=== PATIENT | male | born 1960 | race Two or more races ===

== ENCOUNTER 2019-03-02 04:39 | Inpatient (IN) | payer BC, MEDICAID ==
[2019-03-02] VITALS (29 sets, daily range): BP systolic 68–107; BP diastolic 42–66
[~2019-03-02] VITALS: Ht 182.9 cm; Wt 66.2 kg
--- NOTE | 2019-03-02 07:00 | NUR ---
PHARMACEUTICAL DEVELOPMENT TECHNICIAN OPENING NOTES RECEIVED PATIENT IN BED, ALERT AND AWAKE X1. RESPONSIVE TO VERBAL AND TACTILE STIMULI AND BLINKS EYES. HOB ELEVATED. NO S/S OF RESPIRATORY DISTRESS. ON MECHANICAL VENTILATION AC 14; TV 500; FI02 40% PEEP 5 WITH SHILEY XLT 6, NOTED WITH THICK AND YELLOW SECRETIONS. SUCTIONED, AURE WELL. SPO2 100%. GT INTACT AND PATENT. NO RESIDUAL NOTED. PLACEMENT CHECKED UPON AUSCULTATION. MULTIPLE PRESSURE INJURY PRESENT WITH EDEMA TO LEFT AND RIGHT HAND, LEFT AND RIGHT FOOT. PICTURES TAKEN. DRESSING TO PRESSURE INJURY SATURATED WITH FOUL SMELLING ODOR OBSERVED. BED IN LOWEST POSITION, LOCKED. CALL LIGHT WITHIN REACH. ORIENTED PATIENT TO ROOM, UNIT AND CALL LIGHT.
--- NOTE | 2019-03-02 07:00 | NUR ---
RT RECEIVED PT TRACH'D (SHILEY 6XLT DISTAL) AND PLACED ON LTV MECHANICAL VENT WITH SETTINGS FROM PREVIOUS FACILITY. METAPHYSICIST DONE. VENT PLUGGED INTO RED OUTLET. SPARE TRACH AND AMBU BAG AT BEDSIDE. ALARMS ON AND WORKING PROPERLY. SUCTIONED AND MONITORED PRN. NO SOB OR SIGNS OF DISTRESS NOTED AT THIS TIME. WILL CONTINUE TO MONITOR THE PATIENT FOR ANY CHANGES. Addendum: 03/02/19 at 1749 by CECILIA VALDEZ RT Amended: Links added.
--- NOTE | 2019-03-02 07:15 | NUR ---
CENTRIFUGAL MACHINE TENDER NOTE: RECEIVED PATIENT FROM [facility]. VENT SETTINGS SHILEY #6, AC 14, TV 500, FIO2 40%, PEEP 5. OSTOMY IN PLACE, GTUBE IN PLACE CLAMPED AT THIS TIME. SUPRAPUBIC CATHETER IN PLACE, EMPTY AT THIS TIME. IV TO BOTH WRIST IN PLACE. PICC LINE TO MIKE IN PLACE, NOT WORKING PER [facility] REPORT. VITAL SIGNS 83/50, HR 97, RESP 16, 97% O2 SAT. WILL ENDORSE TO DAY NURSE TO CONTINUE WITH PLAN OF CARE.
[2019-03-02] MEDS ORDERED: MAGNESIUM HYDROXIDE 30 ML UDC PO PRN (08:30)
[2019-03-02] MEDS ORDERED: IV NS 0.9% 1,000 ML IV PRN (08:30)
[2019-03-02] MEDS ORDERED: HYDROCODONE/APAP 5/325MG 1 EACH TABLET PO PRN ×2 (08:30→14:00)
[2019-03-02] MEDS ORDERED: MAG HYDROX/AL HYDROX/SIMETH 30 ML UDC PO PRN (08:30)
[2019-03-02] MEDS ORDERED: ZOLPIDEM TARTRATE 5 MG TABLET PO PRN (08:30)
[2019-03-02] MEDS ORDERED: ONDANSETRON HCL/PF 4 MG/2 ML VIAL IVP PRN (08:30)
[2019-03-02] MEDS: COLISTIMETHATE SODIUM 100 MG in IV NS 0.9% 50 ML IV SCH ×2 (09:59→21:09)
[2019-03-02] MEDS ORDERED: ACET-868 GT (10:46)
[2019-03-02] MEDS ORDERED: SCOP1PAT11 TD (10:46)
[2019-03-02] MEDS ORDERED: DIPH50CA4 PO (10:46)
[2019-03-02] MEDS ORDERED: POLY17PO4 GT (10:46)
[2019-03-02] MEDS ORDERED: IPRA3AMP23 IH (10:46)
[2019-03-02] MEDS ORDERED: MIDO5TAB4 GT (10:46)
[2019-03-02] MEDS ORDERED: TRAZ-182 PO (10:46)
[2019-03-02] MEDS ORDERED: [UNRECOGNIZED DRUG - CODE] IV (10:46)
[2019-03-02] MEDS ORDERED: CHLO500T3 GT (10:46)
[2019-03-02] MEDS ORDERED: DOCU-141 PO (10:46)
[2019-03-02] MEDS ORDERED: AMIO200T4 GT (10:46)
[2019-03-02] MEDS ORDERED: ONDA4TAB11 GT (10:46)
[2019-03-02] MEDS ORDERED: HYDR-4384 PO (10:46)
[2019-03-02] MEDS ORDERED: CHLO473M3 MM (10:46)
[2019-03-02] MEDS ORDERED: ACET200V4 MC (10:46)
[2019-03-02] MEDS ORDERED: BISA10SU11 RC (10:46)
[2019-03-02] MEDS ORDERED: ENOX40DI SQ (10:46)
[2019-03-02] MEDS ORDERED: NA P133E RC (10:46)
[2019-03-02] MEDS ORDERED: METO-295 GT (10:46)
--- NOTE | 2019-03-02 11:57 | NUR ---
STAFF RESEARCH SCIENTIST NOTES PICC LINE DC'D AURE WELL WITH CATHETER TIP INTACT.
[2019-03-02] MEDS ORDERED: METOCLOPRAMIDE HCL 10 MG TABLET GT PRN (14:00)
[2019-03-02] MEDS ORDERED: ACETAMINOPHEN 325 MG TABLET MC PRN (14:00)
[2019-03-02] MEDS ORDERED: ONDANSETRON 4 MG TAB.RAPDIS GT PRN (14:00)
[2019-03-02] MEDS ORDERED: NA PHOS,M-B/NA PHOS,DI-BA 1 EA ENEMA RC PRN (14:00)
[2019-03-02] MEDS ORDERED: BISACODYL SUPP (10 MG) 10 MG/SUPP.RECT SUPP.RECT RC PRN (14:00)
[2019-03-02] MEDS ORDERED: diphenhydrAMINE HCL 50 MG CAPSULE PO PRN (14:00)
[2019-03-02] MEDS: JEVITY 1.2 CAL 1,000 ML BOTTLE GT PRN (14:22)
[2019-03-02] MEDS: CHLORHEXIDINE GLUCONATE 15 ML UDC MM SCH ×2 (15:31→20:53)
--- NOTE | 2019-03-02 15:57 | NUR ---
CARD BOXER NOTES LEFT MESSAGE TO YASH INFECTION CONTROL D/T PATIENT WITH HX OF CRE
[2019-03-02 16:35] LABS: APPEARANCE,URINE CLEAR (CLEAR); BILIRUBIN,URINE NEGATIVE (NEGATIVE); BLOOD, URINE MODERATE Ery/uL (NEGATIVE); COLOR,URINE YELLOW (YELLOW); KETONES,URINE TRACE (NEGATIVE); LEUKOCYTE ESTERASE ,URINE MODERATE (NEGATIVE); NITRITE, URINE NEGATIVE (NEGATIVE); PROTEIN,URINE 100 mg/dl (NEGATIVE); UGLUCOSE NEGATIVE (NEGATIVE); UROBILINOGEN,URINE 0.2 EU/dL (0.2)
[2019-03-02 16:42] LABS: BACTERIA,URINE None seen /HPF (None Seen); SQUAMOUS EPITHELIAL CELL,UR Few /HPF (None Seen)
[2019-03-02 16:49] LABS: CREATININE, URINE < 13.0 MG/DL (30.0-125.0); URINE SODIUM, RANDOM 98 mmol/l (40-220); URINE TOTAL PROTEIN 238.5 mg/dL (0-11.9)
[2019-03-02] MEDS: AMIODARONE HCL 200 MG TABLET GT SCH (17:00)
[2019-03-02] MEDS ORDERED: ACETYLCYSTEINE 20% SOLN 800 MG/4 ML VIAL NEB SCH (17:00)
[2019-03-02] MEDS: DOCUSATE SODIUM 100 MG CAPSULE PO SCH (17:15)
[2019-03-02] MEDS: ACETAMINOPHEN 325 MG TABLET PO PRN (17:15)
[2019-03-02 17:16] LABS: EOSINOPHIL,URINE None Seen
[2019-03-02 17:18] LABS: BASOPHILS % (AUTO) 0.5 % (0.0-2.0); EOSINOPHILS % (AUTO) 5.7 % (0.0-6.0); LYMPHOCYTES % (AUTO) 11.1 % (20.0-44.0); MEAN CORPUSCULAR HGB CONC 32 g/dl (31.0-36.0); MEAN CORPUSCULAR VOLUME 85 fL (80-96); MONOCYTES # (AUTO) 0.6 /CMM (0.1-1.30); MONOCYTES % (AUTO) 6.5 % (2.0-12.0); NEUTROPHILS % (AUTO) 76.2 % (43.0-81.0); PLATELET COUNT (AUTO) 214 /CMM (150-450); RED BLOOD CELL COUNT(AUTO) 2.38 MIL/uL (4.5-6.0); WHITE BLOOD COUNT (AUTO) 9.1 K/uL (4.3-11.0)
[2019-03-02] MEDS: MIDODRINE HCL (5MG) 5 MG TABLET GT SCH (17:18)
[2019-03-02 17:24] LABS: CALCIUM, SERUM 11.4 mg/dL (8.5-10.1); CREATININE 1.3 mg/dL (0.6-1.3); POTASSIUM 3.6 mmol/L (3.5-5.1)
[2019-03-02 17:26] LABS: HEMATOCRIT 20 % (39-51)
[2019-03-02 17:27] LABS: HEMOGLOBIN 6.4 g/dL (13.5-17.5)
--- NOTE | 2019-03-02 17:30 | NUR ---
INTERNATIONAL BROADCAST MUSIC LIBRARIAN NOTES RECEIVED LAB RESULTS OF NA 167; CHLORIDE 127; HGB 6.4, RELAYED TO DR. DOAN, AWAITING FOR RESPONSE.
[2019-03-02 17:59] LABS: EOSINOPHILS % (MANUAL) 2 % (0-4); LYMPHOCYTES % (MANUAL) 10 % (16-48); MONOCYTES % (MANUAL) 6 % (0-11.0); NEUTROPHILS % (MANUAL) 82 (42-76)
--- NOTE | 2019-03-02 18:00 | NUR ---
PETROPHYSICIST NOTES RECEIVED CALL BACK FROM DR. DOAN, RELAYED NA 167 WITH NS RUNNING AT 100 ML/HR, CHLORIDE OF 127 AND HGB OF 6.4 WITH N.O. CARRIED OUT FOR 2 PRBC[address] ALSO RELAYED TO [address] DOAN REGARDING FLUCTUATING SBP TO 80-90 AND DBP 40-50. PER MD IF IT DROPS TO TRANSFER TO ICU. ALSO INFORMED MD THAT PATIENT IS ON MIDODRINE AND IT WAS GIVEN AROUND 1718 AND WILL RECHECK BP AGAIN.
--- NOTE | 2019-03-02 18:40 | NUR ---
MUTUAL FUND ACCOUNTANT NOTES BP DROPPED TO 78/49 PATIENT FOR TRANSFER TO ICU
--- NOTE | 2019-03-02 18:51 | NUR ---
PANTOGRAPH II ENGRAVER NOTE RECEIVED REPORT FROM SOFIA DUFFY FROM 3W ([phone] TO [phone] )TO TRANSFER PATIENT TO ICU FOR DECREASED BP OF 78/49.
--- NOTE | 2019-03-02 19:05 | NUR ---
GUARD DRIVER NOTE ENDORSED REPORT TO MARCOS DUFFY.AWAITING PATIENT .
--- NOTE | 2019-03-02 19:10 | NUR ---
ROLL UP GUIDER OPERATOR NOTES PATIENT WAS TRANSFERRED TO ICU 254 VIA ACLS PROTOCOL. REPORT GIVEN TO CLIVE العلي
[2019-03-02] MEDS ORDERED: IV 1/2NS 1000 ML 1,000 ML IV ONE (19:30)
[2019-03-02] MEDS: IV 1/2NS 1000 ML 1,000 ML IV PRN (19:50)
[2019-03-02] MEDS ORDERED: IV NS 0.9% 250 ML IV PRN (20:00)
--- NOTE | 2019-03-02 20:00 | NUR ---
DIALS INSPECTOR - NOTES - RECEIVED PATIENT IN BED, ALERT AND AWAKE X1. RESPONSIVE TO VERBAL AND TACTILE STIMULI AND BLINKS EYES. HOB ELEVATED. NO S/S OF RESPIRATORY DISTRESS. ON MECHANICAL VENTILATION AC 14; TV 500; FI02 40% PEEP 5 WITH SHILEY XLT 6, NOTED WITH THICK AND YELLOW SECRETIONS. SUCTIONED, AURE WELL. SPO2 100%. GT INTACT AND PATENT. NO RESIDUAL NOTED. PLACEMENT CHECKED UPON AUSCULTATION. MULTIPLE PRESSURE INJURY PRESENT WITH EDEMA TO LEFT AND RIGHT HAND, LEFT AND RIGHT FOOT. PICTURES TAKEN. DRESSING TO PRESSURE INJURY SATURATED WITH FOUL SMELLING ODOR OBSERVED. BED IN LOWEST POSITION, LOCKED. CALL LIGHT WITHIN REACH. ORIENTED PATIENT TO ROOM, UNIT AND CALL LIGHT.
[2019-03-02] MEDS: ACETYLCYSTEINE 20% SOLN 800 MG/4 ML VIAL NEB SCH (20:05)
[2019-03-02] MEDS: ALBUTEROL HALF STRENGTH 1.25 MG/3 ML VIAL.NEB NEB SCH (20:05)
[2019-03-02] MEDS: TRAZODONE 50 MG TABLET PO SCH (21:33)
[2019-03-03] VITALS (58 sets, daily range): BP systolic 74–126; BP diastolic 33–65
[2019-03-03 04:40] LABS: BASOPHILS % (AUTO) 0.3 % (0.0-2.0); EOSINOPHILS % (AUTO) 6.6 % (0.0-6.0); HEMATOCRIT 27 % (39-51); HEMOGLOBIN 8.6 g/dL (13.5-17.5); LYMPHOCYTES # (AUTO) 1.4 /CMM (0.8-4.8); MEAN CORPUSCULAR HGB CONC 32 g/dl (31.0-36.0); MEAN CORPUSCULAR VOLUME 86 fL (80-96); MONOCYTES # (AUTO) 0.3 /CMM (0.1-1.30); MONOCYTES % (AUTO) 2.9 % (2.0-12.0); NEUTROPHILS # (AUTO) 7.2 /CMM (1.8-8.9); NEUTROPHILS % (AUTO) 75.2 % (43.0-81.0); PLATELET COUNT (AUTO) 241 /CMM (150-450); RED BLOOD CELL COUNT(AUTO) 3.09 MIL/uL (4.5-6.0); WHITE BLOOD COUNT (AUTO) 9.6 K/uL (4.3-11.0)
[2019-03-03 04:54] LABS: ALBUMIN 1.7 g/dL (3.4-5.0); BILIRUBIN,TOTAL 0.3 mg/dL (0.2-1.0); CALCIUM, SERUM 11.6 mg/dL (8.5-10.1); CREATININE 1.4 mg/dL (0.6-1.3); MAGNESIUM 1.6 mg/dL (1.8-2.4); PHOSPHORUS 3.9 mg/dL (2.5-4.9); POTASSIUM 3.8 mmol/L (3.5-5.1); TOTAL PROTEIN, SERUM 7.2 g/dL (6.4-8.2)
--- NOTE | 2019-03-03 07:00 | NUR ---
ICU/RN: Pt received, no distress, tolerating current vent settings. Airway cleared of secretions. Tolerating TF. Suprapubic catheter draining to gravity, IVF infusing as ordered. Aspiration precautions in place. Will cont to monitor pt.
[2019-03-03] MEDS: ACETYLCYSTEINE 20% SOLN 800 MG/4 ML VIAL NEB SCH ×2 (07:44→19:45)
[2019-03-03] MEDS: ALBUTEROL HALF STRENGTH 1.25 MG/3 ML VIAL.NEB NEB SCH ×2 (07:44→19:45)
[2019-03-03] MEDS: IV 1/2NS 1000 ML 1,000 ML IV PRN (07:53)
[2019-03-03] MEDS: COLISTIMETHATE SODIUM 100 MG in IV NS 0.9% 50 ML IV SCH ×2 (08:27→20:30)
[2019-03-03] MEDS: CHLORHEXIDINE GLUCONATE 15 ML UDC MM SCH ×2 (08:28→20:30)
[2019-03-03] MEDS: AMIODARONE HCL 200 MG TABLET GT SCH ×2 (08:28→16:24)
[2019-03-03] MEDS: MIDODRINE HCL (5MG) 5 MG TABLET GT SCH ×2 (08:28→16:24)
[2019-03-03] MEDS: POLYETHYLENE GLYCOL 3350 17 GM POWD.PACK GT SCH (08:29)
[2019-03-03] MEDS: DOCUSATE SODIUM 100 MG CAPSULE PO SCH (08:29)
[2019-03-03] MEDS: Z GUARD REMEDY 2 OZ OINT TP PRN ×2 (08:30→16:11)
[2019-03-03] MEDS ORDERED: CHLORZOXAZONE 500 MG TABLET GT SCH (09:00)
--- NOTE | 2019-03-03 09:26 | NUR ---
RT Pt received trached on mechanical ventilation with noted settings. Pt is awake but does not follow commands. Vent is plugged into red outlet. No SOB or respiratory distress noted. Addendum: 03/03/19 at 0927 by GHANSHYAM GIRARD RT Amended: Links added.
--- NOTE | 2019-03-03 10:30 | NUR ---
ICU/RN: Dr Flannery at bedside; updated on pt status, labs and nephrology recommendations. Per MD, increase free water flushes to 300cc/hr, change IVF to D5W at 150cc/hr. Noted and carried out.
[2019-03-03] MEDS ORDERED: SILVER NITRATE APPLICATOR 1 EA BOX TP ONE (11:00)
[2019-03-03] MEDS ORDERED: LIDOCAINE 1%-EPI 1:100,000 50 ML VIAL IJ ONE (11:00)
[2019-03-03] MEDS: JEVITY 1.2 CAL 1,000 ML BOTTLE GT PRN (11:09)
[2019-03-03] MEDS: IV D5W 1,000 ML IV PRN ×2 (11:13→20:00)
[2019-03-03] MEDS: Magnesium 1GM/D5W 100ML PREMIX 100 ML IV SCH ×2 (12:12→13:21)
--- NOTE | 2019-03-03 13:30 | NUR ---
ICU/RN: SONI Ignacio notified that consent was obtained from pt's sister and DPOA. Per PA, no debridement for today.
[2019-03-03] MEDS ORDERED: CYCLOBENZAPRINE 10 MG TABLET PO PRN (14:30)
[2019-03-03] MEDS: CLOTRIMAZOLE/BETAMETASONE DIPROPIONATE 15 GM TUBE TP SCH ×3 (15:00→16:27)
[2019-03-03 15:22] LABS: HEMOGLOBIN 8.1 g/dL (13.5-17.5)
--- NOTE | 2019-03-03 15:40 | NUR ---
ICU/RN: Pt S/P sacral and bilateral buttock debridement with SONI Ignacio. PA assisted at bedside. Silver nitrate administered to prevent excessive bleeding. Pressure applied. Pt tolerated procedure well. heel cover splitter updated.
[2019-03-03] MEDS: DAKINS QUARTER STRENGTH (0.125%) 480 ML BOTTLE TOP SCH (15:41)
[2019-03-03] MEDS: Z GUARD REMEDY 2 OZ OINT TP SCH (16:11)
[2019-03-03] MEDS: DOCUSATE SODIUM LIQ 100 MG/10 ML UDC GT SCH (16:23)
--- NOTE | 2019-03-03 17:45 | NUR ---
ICU/RN: Received critical lab result from [facility] Dr Bower, regarding positive blood culture 1/2 bottle positive for coag negative staph; 2/[address] Benitez trinidad.
--- NOTE | 2019-03-03 18:00 | NUR ---
ICU/RN: Dr Marquis informed of pt downward BP trend; unable to maintain MAP >65mmHg despite midodrine administration and ongoing infusion of IVF at 150mls/hr. Also notified of critical lab results drawn from [facility] ER prior to pt admission to [facility]: blood culture bottle 1 out of 2 has coag negative staphylococcus; bottle 2 negative for growth. Urine culture still pending and advised RN to follow up with [facility] ([phone]) regarding results tomorrow. Per MD, blood culture results likely due to mixed contaminants. Orders for Levophed and PICC line insertion noted and carried out.
--- NOTE | 2019-03-03 18:15 | NUR ---
ICU/RN: Consent for PICC insertion obtained from Caty, pt's sister and DPOA. Pt previously had PICC line from [facility] but was discontinued per MD order. Nursing supervisor concrete stone finishing and bellows charger assembler notified.
[2019-03-03] MEDS: NOREPINEPHRINE 16 MG in IV D5W 500 ML IV PRN (18:34)
--- NOTE | 2019-03-03 19:59 | NUR ---
RT Pt received trached on mechanical ventilation with noted settings. Pt is stable at this time. Vent is plugged into red outlet. No SOB or respiratory distress noted. will continue to monitor. Addendum: 03/03/19 at 1999 by DEE DEWITT RT Amended: Links added.
--- NOTE | 2019-03-03 20:00 | NUR ---
LEAD PERFORMANCE SUPPORT ANALYST - NOTES - RECEIVED PATIENT IN BED, ALERT AND AWAKE X1. RESPONSIVE TO VERBAL AND TACTILE STIMULI AND BLINKS EYES. HOB ELEVATED. NO S/S OF RESPIRATORY DISTRESS. ON MECHANICAL VENTILATION AC 14; TV 500; FI02 40% PEEP 5 WITH SHILEY XLT 6, NOTED WITH THICK AND YELLOW SECRETIONS. SUCTIONED, TOLERATED WELL. SPO2 100%. GT INTACT AND PATENT ON TF JEVITY 1.2 @ 60 ML/HR. 40 RESIDUAL NOTED. PLACEMENT CHECKED UPON AUSCULTATION. MULTIPLE PRESSURE INJURY PRESENT WITH EDEMA TO LEFT AND RIGHT HAND, LEFT AND RIGHT FOOT. BED IN LOWEST POSITION, LOCKED. CALL LIGHT WITHIN REACH. ORIENTED PATIENT TO ROOM, UNIT AND CALL LIGHT.
[2019-03-03] MEDS: TRAZODONE 50 MG TABLET PO SCH (21:15)
--- NOTE | 2019-03-03 23:30 | NUR ---
LEFT UPPER ARM MIDLINE PLACED, PICC LINE UNABLE TO BE ADVANCED TO SVC SO IT WAS ADVANCED 23 CM FROM INSERTION POINT.
[2019-03-04] VITALS (96 sets, daily range): BP systolic 78–120; BP diastolic 41–69
[2019-03-04] MEDS: IV D5W 1,000 ML IV PRN ×2 (03:54→19:39)
[2019-03-04 04:27] LABS: BASOPHILS % (AUTO) 0.3 % (0.0-2.0); EOSINOPHILS % (AUTO) 11.9 % (0.0-6.0); HEMATOCRIT 22 % (39-51); HEMOGLOBIN 7.2 g/dL (13.5-17.5); LYMPHOCYTES # (AUTO) 1.3 /CMM (0.8-4.8); LYMPHOCYTES % (AUTO) 16.6 % (20.0-44.0); MEAN CORPUSCULAR HGB CONC 32 g/dl (31.0-36.0); MEAN CORPUSCULAR VOLUME 86 fL (80-96); MONOCYTES # (AUTO) 0.2 /CMM (0.1-1.30); MONOCYTES % (AUTO) 3.2 % (2.0-12.0); NEUTROPHILS # (AUTO) 5.3 /CMM (1.8-8.9); PLATELET COUNT (AUTO) 200 /CMM (150-450); WHITE BLOOD COUNT (AUTO) 7.8 K/uL (4.3-11.0)
[2019-03-04 04:29] LABS: CALCIUM, SERUM 11.1 mg/dL (8.5-10.1); CREATININE 1.3 mg/dL (0.6-1.3); MAGNESIUM 1.7 mg/dL (1.8-2.4); POTASSIUM 3.6 mmol/L (3.5-5.1)
[2019-03-04] MEDS: JEVITY 1.2 CAL 1,000 ML BOTTLE GT PRN (04:41)
--- NOTE | 2019-03-04 07:29 | NUR ---
BUSINESS INTELLIGENCE REPORTING ANALYST: pt.is obtunded, can open eyes by touch, no eyes contact, rest, no grimacing, posturing/extension, rigid, SR/SB 52-62, on Levophed gtt 4 mcg/min now, SBP over 90 now, O2sat, over 96%, FiO2 40%, no SOB, GTF residual 30ml now, no hematuria now, H/H 7.2, Na 154, getting D5W@150, all wounds care done over by report, no acute bleeding events by report
[2019-03-04] MEDS: ALBUTEROL HALF STRENGTH 1.25 MG/3 ML VIAL.NEB NEB SCH ×2 (07:35→19:54)
[2019-03-04] MEDS: ACETYLCYSTEINE 20% SOLN 800 MG/4 ML VIAL NEB SCH ×2 (07:35→19:54)
[2019-03-04] MEDS: Z GUARD REMEDY 2 OZ OINT TP SCH (07:42)
[2019-03-04] MEDS: CLOTRIMAZOLE/BETAMETASONE DIPROPIONATE 15 GM TUBE TP SCH ×4 (07:43→16:34)
[2019-03-04] MEDS: DAKINS QUARTER STRENGTH (0.125%) 480 ML BOTTLE TOP SCH ×2 (07:43)
[2019-03-04] MEDS: AMIODARONE HCL 200 MG TABLET GT SCH ×2 (08:15→16:33)
[2019-03-04] MEDS: POLYETHYLENE GLYCOL 3350 17 GM POWD.PACK GT SCH (08:15)
[2019-03-04] MEDS: MIDODRINE HCL (5MG) 5 MG TABLET GT SCH ×2 (08:16→16:33)
[2019-03-04] MEDS: DOCUSATE SODIUM LIQ 100 MG/10 ML UDC GT SCH ×2 (08:16→16:33)
[2019-03-04] MEDS: COLISTIMETHATE SODIUM 100 MG in IV NS 0.9% 50 ML IV SCH ×2 (08:16→21:31)
[2019-03-04] MEDS: CHLORHEXIDINE GLUCONATE 15 ML UDC MM SCH ×2 (08:16→21:31)
[2019-03-04 09:07] LABS: PTH, INTACT <6 pg/mL (15-65)
--- NOTE | 2019-03-04 09:10 | NUR ---
PLUSH BRUSHER: updated/see new orders
[2019-03-04] MEDS: Magnesium 1GM/D5W 100ML PREMIX 100 ML IV SCH ×2 (11:16→12:54)
--- NOTE | 2019-03-04 11:40 | NUR ---
WOUND CARE CONSULT: PT FOLLOWED BY PLASTIC SURGERY TEAM FOR MULTIPLE WOUNDS. DEFER TO SURGICAL TEAM FOR WOUND TREATMENT PLAN. [facility] L[facility] AIRLOSS MATTRESS. WILL SEE PRN.
[2019-03-04 13:07] LABS: *SPE A/G RATIO 0.6 (0.7-1.7); *SPE ALBUMIN 2.3 g/dL (2.9-4.4); *SPE ALPHA-1-GLOBULIN 0.5 g/dL (0.0-0.4); *SPE ALPHA-2-GLOBULIN 0.5 g/dL (0.4-1.0); *SPE BETA GLOBULIN 1.2 g/dL (0.7-1.3); *SPE GLOBULIN, TOTAL 3.7 g/dL (2.2-3.9); *SPE M-SPIKE Not Observed g/dL (Not Observed); *SPEGAMMA GLOBULIN 1.4 g/dL (0.4-1.8)
--- NOTE | 2019-03-04 14:15 | NUR ---
HIGH SCHOOL COMBINATION TEACHER: GTF residual 120ml now, hold GTF for 2hrs
--- NOTE | 2019-03-04 16:20 | NUR ---
ADVERTISING DISPLAY ROTATOR: GT residual 30 ml, resumed GTF
--- NOTE | 2019-03-04 17:22 | NUR ---
GREENHOUSE GROWER: pt is with same neurostatus/obtunded, SR/SB lowest 57, Levophed 8 mcg/min now, SBP over 90, O2sat. WNL, all skin/pm/wounds care done, colostomy is intact
--- NOTE | 2019-03-04 19:30 | NUR ---
IMPORT COORDINATOR RCD PT W/DX HEMATURIA, HYPOTENSION. PT IS OBTUNDED. SB ON MONITOR. LEVOPHED AT 8 MCG/MIN; TITRATE ACCORDINGLY. SHILEY 6 XLT W/VENT SETTINGS AC 14 500 40% +5. GTUBE WITH JEVITY 1.2 @ 60 ML/HR.
--- NOTE | 2019-03-04 20:00 | NUR ---
HOME WEATHERIZING WORKER TUBE FEEDING RESIDUAL 200 ML; HOLD FEEDING x2 HOURS.
--- NOTE | 2019-03-04 20:45 | NUR ---
PT RCVD TRACH'D ON MECHANICAL VENT WITH CHARTED SETTINGS. PT AURE TX WELL. SX DONE. PT TRACH IS PATENT AND SECURE. VENT ALARMS APPEAR TO BE FUNCTIONING PROPERLY. VENT PLUGGED INTO RED OUTLET. AMBU BAG AT BEDSIDE. NO SOB NOTED. Addendum: 03/04/19 at 2046 by MACHO PATEL RT Amended: Links added.
[2019-03-04] MEDS: TRAZODONE 50 MG TABLET PO SCH (21:31)
[2019-03-05] VITALS (89 sets, daily range): BP systolic 84–116; BP diastolic 52–74
[2019-03-05] MEDS: JEVITY 1.2 CAL 1,000 ML BOTTLE GT PRN (02:51)
[2019-03-05 04:54] LABS: BASOPHILS % (AUTO) 0.2 % (0.0-2.0); EOSINOPHILS % (AUTO) 11.3 % (0.0-6.0); HEMATOCRIT 23 % (39-51); HEMOGLOBIN 7.6 g/dL (13.5-17.5); LYMPHOCYTES # (AUTO) 1.4 /CMM (0.8-4.8); LYMPHOCYTES % (AUTO) 13.4 % (20.0-44.0); MEAN CORPUSCULAR HGB CONC 33 g/dl (31.0-36.0); MEAN CORPUSCULAR VOLUME 83 fL (80-96); MONOCYTES # (AUTO) 0.3 /CMM (0.1-1.30); MONOCYTES % (AUTO) 2.6 % (2.0-12.0); NEUTROPHILS # (AUTO) 7.4 /CMM (1.8-8.9); NEUTROPHILS % (AUTO) 72.5 % (43.0-81.0); PLATELET COUNT (AUTO) 237 /CMM (150-450); RED BLOOD CELL COUNT(AUTO) 2.75 MIL/uL (4.5-6.0); WHITE BLOOD COUNT (AUTO) 10.2 K/uL (4.3-11.0)
[2019-03-05 05:18] LABS: CALCIUM, SERUM 11.2 mg/dL (8.5-10.1); CREATININE 1.2 mg/dL (0.6-1.3); MAGNESIUM 1.9 mg/dL (1.8-2.4); POTASSIUM 3.8 mmol/L (3.5-5.1)
[2019-03-05] MEDS: NOREPINEPHRINE 16 MG in IV D5W 500 ML IV PRN ×2 (05:25→17:26)
--- NOTE | 2019-03-05 07:01 | NUR ---
MILLINERY DEPARTMENT MANAGER PT REMAINED ON LEVOPHED; INCREASED TO 12 MCG/MIN PER PROTOCOL.
--- NOTE | 2019-03-05 07:45 | NUR ---
WEATHERIZATION TECHNICIAN: pt is obtunded, can open eyes by touch, no eyes contact, unable to follow commands, posturing/rigid/contracted, rest, no SOB, suctioned well, SR 65-74, on Levophed gtt, 12 mcg/m now, continue titrate, SBP over 90 now, GTF residual 160 ml now, stopped GTF for 2 hrs, keep HOB over 40, colostomy bag is intact, no hematuria, H/H 7.6/23, getting GT free water, IVF D5W@40ml/h, Na 148, wounds care done by report
[2019-03-05] MEDS: ALBUTEROL HALF STRENGTH 1.25 MG/3 ML VIAL.NEB NEB SCH ×2 (08:02→20:05)
[2019-03-05] MEDS: ACETYLCYSTEINE 20% SOLN 800 MG/4 ML VIAL NEB SCH ×2 (08:02→20:05)
[2019-03-05] MEDS: DAKINS QUARTER STRENGTH (0.125%) 480 ML BOTTLE TOP SCH ×2 (08:52)
[2019-03-05] MEDS: CLOTRIMAZOLE/BETAMETASONE DIPROPIONATE 15 GM TUBE TP SCH ×4 (08:52→17:30)
[2019-03-05] MEDS: Z GUARD REMEDY 2 OZ OINT TP PRN (08:53)
[2019-03-05] MEDS: CHLORHEXIDINE GLUCONATE 15 ML UDC MM SCH ×2 (08:53→21:00)
[2019-03-05] MEDS: DOCUSATE SODIUM LIQ 100 MG/10 ML UDC GT SCH ×2 (08:53→17:26)
[2019-03-05] MEDS: COLISTIMETHATE SODIUM 100 MG in IV NS 0.9% 50 ML IV SCH ×2 (08:54→21:00)
[2019-03-05] MEDS: MIDODRINE HCL (5MG) 5 MG TABLET GT SCH ×2 (08:54→17:26)
[2019-03-05] MEDS: POLYETHYLENE GLYCOL 3350 17 GM POWD.PACK GT SCH (08:54)
[2019-03-05] MEDS: Z GUARD REMEDY 2 OZ OINT TP SCH (09:04)
--- NOTE | 2019-03-05 09:15 | NUR ---
LIGHT BULB REPLACER: is in room, updated with pt.current condition, VS, pressor, all above, asked to verify final result of wound culture, [facility] noted there is min mix morgan growing with rare WBC colonization/GNR, heavy growth diphtheroids/by contamination, need to ask SONI Rainey for workup required to repeat w/c?, debridement done on 03/03
[2019-03-05] MEDS: AMIODARONE HCL 200 MG TABLET GT SCH ×2 (09:45→17:29)
--- NOTE | 2019-03-05 10:00 | NUR ---
RECOIL SPRING WINDER: is in room, updated with pt.current status, VS, Levophed gtt, suction amount, GTF, high residual episodes, IVF, I/O, wounds, H/H, said: continue free H2O 300ml q6h via GT for one day more
--- NOTE | 2019-03-05 11:00 | NUR ---
ASSET PROTECTION ASSOCIATE: GT residual is 40 ml, resumed GTF
--- NOTE | 2019-03-05 13:55 | NUR ---
SAND CONDITIONER: [facility] micro w/c result was sent to SONI Watts f/u note/request
--- NOTE | 2019-03-05 15:23 | NUR ---
UKRAINIAN FOLK ARTS INSTRUCTOR: new wound culture was taken from necrotic tissue pocket of sacral area before wound care, charge nurse is agree to repeat w/c per Dr.Andonian almonte
--- NOTE | 2019-03-05 16:00 | NUR ---
SPACE OPERATIONS OFFICER: evaluated [place] transfer doc re Atbxs follow pharmacy call, pt got Rocephin one dose, Colistimethate started in [facility], unable to get micro result from Rafia Fonseca confirmed by charge nurse call we have to follow with Diann Andrade microbiol results. All wounds/PM/skin care done, Continue titrate Levophed gtt. SNF called/updated.
--- NOTE | 2019-03-05 18:54 | NUR ---
ARTIST'S REPRESENTATIVE: all PM/skin/wounds care done, SR, Levophed 6 mcg/m now, O2sat. over 96%, suctioned well, will notify next nurse to stop GT H2O flushing after 06.00
[2019-03-05] MEDS: TRAZODONE 50 MG TABLET PO SCH (21:00)
[2019-03-06] VITALS (88 sets, daily range): BP systolic 81–113; BP diastolic 50–70
[2019-03-06] MEDS: JEVITY 1.2 CAL 1,000 ML BOTTLE GT PRN (01:31)
[2019-03-06] MEDS: IV D5W 1,000 ML IV PRN (01:32)
--- NOTE | 2019-03-06 03:00 | NUR ---
AGRICULTURAL EQUIPMENT TEST ENGINEER RENDERED WOUND CARE; PT TOLERATED WELL.
--- NOTE | 2019-03-06 06:00 | NUR ---
MULTINEEDLE SHIRRER COMPLETED WATER FLUSHES. CONTINUE TO MONITOR.
--- NOTE | 2019-03-06 06:30 | NUR ---
TRIAL LAWYER PT REMAINED ON LEVOPHED AT 6 MCG/MIN; CONTINUE TO MONITOR.
[2019-03-06] MEDS: ALBUTEROL HALF STRENGTH 1.25 MG/3 ML VIAL.NEB NEB SCH ×2 (07:30→20:00)
[2019-03-06] MEDS: ACETYLCYSTEINE 20% SOLN 800 MG/4 ML VIAL NEB SCH ×2 (07:30→20:00)
[2019-03-06 08:30] LABS: BASOPHILS % (AUTO) 0.3 % (0.0-2.0); HEMATOCRIT 22 % (39-51); HEMOGLOBIN 7.2 g/dL (13.5-17.5); LYMPHOCYTES # (AUTO) 1.6 /CMM (0.8-4.8); LYMPHOCYTES % (AUTO) 16.2 % (20.0-44.0); MEAN CORPUSCULAR HGB CONC 33 g/dl (31.0-36.0); MEAN CORPUSCULAR VOLUME 83 fL (80-96); MONOCYTES # (AUTO) 0.3 /CMM (0.1-1.30); MONOCYTES % (AUTO) 3.5 % (2.0-12.0); NEUTROPHILS # (AUTO) 6.6 /CMM (1.8-8.9); PLATELET COUNT (AUTO) 239 /CMM (150-450); RED BLOOD CELL COUNT(AUTO) 2.65 MIL/uL (4.5-6.0); WHITE BLOOD COUNT (AUTO) 9.8 K/uL (4.3-11.0)
[2019-03-06 08:39] LABS: CALCIUM, SERUM 10.3 mg/dL (8.5-10.1); CREATININE 1.1 mg/dL (0.6-1.3)
[2019-03-06] MEDS: AMIODARONE HCL 200 MG TABLET GT SCH ×2 (09:54→17:19)
[2019-03-06] MEDS: CHLORHEXIDINE GLUCONATE 15 ML UDC MM SCH ×2 (09:54→21:59)
[2019-03-06] MEDS: MIDODRINE HCL (5MG) 5 MG TABLET GT SCH ×2 (09:54→17:20)
[2019-03-06] MEDS: DOCUSATE SODIUM LIQ 100 MG/10 ML UDC GT SCH ×2 (09:54→17:19)
[2019-03-06] MEDS: POLYETHYLENE GLYCOL 3350 17 GM POWD.PACK GT SCH (09:54)
[2019-03-06] MEDS: Z GUARD REMEDY 2 OZ OINT TP SCH (09:55)
[2019-03-06] MEDS: CLOTRIMAZOLE/BETAMETASONE DIPROPIONATE 15 GM TUBE TP SCH ×4 (09:55→17:21)
[2019-03-06] MEDS: DAKINS QUARTER STRENGTH (0.125%) 480 ML BOTTLE TOP SCH ×2 (09:55)
--- NOTE | 2019-03-06 11:15 | NUR ---
THIRD RIGGER NOTE RECEIVED REPORT FROM LAB, PER RIKKI SENSITIVITIES ARE NOT DONE ON YEAST
[2019-03-06] MEDS: NOREPINEPHRINE 16 MG in IV D5W 500 ML IV PRN (17:21)
--- NOTE | 2019-03-06 19:43 | NUR ---
AS400 CONSULTANT CLOSING NOTE NO SIGNIFICANT CHANGES. ALL DUE MEDS GIVEN . NO RESPIRATORY DISTRESS NOTED. UPDATES GIVEN TO SISTER. FAIRLY TOLERATING GTF. WOUND TX DONE. ON LEVO AT 2MCG/MIN. HOB ELEVATED. SIDE RAILS UP AND LOCKED. BED KEPT AT LOWEST POSITION. CONTINUITY OF CARE ENDORSED TO PM NURSE.
--- NOTE | 2019-03-06 20:00 | NUR ---
PRECISION GRINDER EXTERNAL - NOTES - RECEIVED PATIENT IN BED, ALERT AND AWAKE X1. RESPONSIVE TO VERBAL AND TACTILE STIMULI AND BLINKS EYES. HOB ELEVATED. NO S/S OF RESPIRATORY DISTRESS. ON MECHANICAL VENTILATION AC 14; TV 500; FI02 40% PEEP 5 WITH SHILEY XLT 6, NOTED WITH THICK AND YELLOW SECRETIONS. SUCTIONED, TOLERATED WELL. SPO2 100%. GT INTACT AND PATENT ON TF JEVITY 1.2 @ 60 ML/HR. PLACEMENT CHECKED UPON AUSCULTATION. MULTIPLE PRESSURE INJURY PRESENT WITH EDEMA TO LEFT AND RIGHT HAND, LEFT AND RIGHT FOOT. BED IN LOWEST POSITION, LOCKED. CALL LIGHT WITHIN REACH. ORIENTED PATIENT TO ROOM, UNIT AND CALL LIGHT.
[2019-03-06] MEDS: TRAZODONE 50 MG TABLET PO SCH (21:59)
[2019-03-07] VITALS (97 sets, daily range): BP systolic 67–115; BP diastolic 33–79
[2019-03-07 04:22] LABS: BASOPHILS % (AUTO) 0.2 % (0.0-2.0); EOSINOPHILS % (AUTO) 8.4 % (0.0-6.0); HEMATOCRIT 23 % (39-51); HEMOGLOBIN 7.7 g/dL (13.5-17.5); LYMPHOCYTES # (AUTO) 1.5 /CMM (0.8-4.8); LYMPHOCYTES % (AUTO) 10.8 % (20.0-44.0); MEAN CORPUSCULAR HGB CONC 33 g/dl (31.0-36.0); MEAN CORPUSCULAR VOLUME 83 fL (80-96); MONOCYTES # (AUTO) 0.4 /CMM (0.1-1.30); MONOCYTES % (AUTO) 2.7 % (2.0-12.0); NEUTROPHILS # (AUTO) 10.7 /CMM (1.8-8.9); NEUTROPHILS % (AUTO) 77.9 % (43.0-81.0); PLATELET COUNT (AUTO) 326 /CMM (150-450); RED BLOOD CELL COUNT(AUTO) 2.83 MIL/uL (4.5-6.0); WHITE BLOOD COUNT (AUTO) 13.8 K/uL (4.3-11.0)
[2019-03-07] MEDS: IV D5W 1,000 ML IV PRN (04:23)
[2019-03-07 04:30] LABS: CALCIUM, SERUM 10.8 mg/dL (8.5-10.1); CREATININE 1.2 mg/dL (0.6-1.3); POTASSIUM 4.6 mmol/L (3.5-5.1)
[2019-03-07] MEDS: ALBUTEROL HALF STRENGTH 1.25 MG/3 ML VIAL.NEB NEB SCH ×2 (07:00→19:46)
[2019-03-07] MEDS: ACETYLCYSTEINE 20% SOLN 800 MG/4 ML VIAL NEB SCH ×2 (07:00→19:46)
[2019-03-07] MEDS: JEVITY 1.2 CAL 1,000 ML BOTTLE GT PRN (07:12)
--- NOTE | 2019-03-07 07:30 | NUR ---
REPORT CLERK INITIAL NOTE RECEIVED PATIENT OBTUNDED, NON-VERBAL. NO S/S OF PAIN OR DISCOMFORT. NO RESPIRATORY DISTRESS NOTED. TRACH C/D/I. TOLERATING CURRENT VENT SETTINGS. ON TELE MONITOR SR. F/C PATENT, DRAINING BY GRAVITY. COLOSTOMY IN PLACE. GT PATENT AND INTACT, WITH RESIDUALS >100ML. ABY PICC LINE PATENT AND INTACT WITH LEVO AT 10MCG/MIN. HOB ELEVATED. SIDE RAILS UP AND LOCKED. BED KEPT AT LOWEST POSITION. WILL CONTINUE TO MONITOR.
[2019-03-07] MEDS: CHLORHEXIDINE GLUCONATE 15 ML UDC MM SCH ×2 (09:25→21:38)
[2019-03-07] MEDS: DOCUSATE SODIUM LIQ 100 MG/10 ML UDC GT SCH ×2 (09:25→16:27)
[2019-03-07] MEDS: AMIODARONE HCL 200 MG TABLET GT SCH ×2 (09:26→16:28)
[2019-03-07] MEDS: POLYETHYLENE GLYCOL 3350 17 GM POWD.PACK GT SCH (09:26)
[2019-03-07] MEDS: DAKINS QUARTER STRENGTH (0.125%) 480 ML BOTTLE TOP SCH ×2 (09:26)
[2019-03-07] MEDS: MIDODRINE HCL (5MG) 5 MG TABLET GT SCH ×2 (09:26→16:28)
[2019-03-07] MEDS: CLOTRIMAZOLE/BETAMETASONE DIPROPIONATE 15 GM TUBE TP SCH ×4 (09:27→16:29)
[2019-03-07] MEDS: Z GUARD REMEDY 2 OZ OINT TP SCH (09:27)
--- NOTE | 2019-03-07 11:15 | NUR ---
curriculum director note noted patient desaturation in 80's, suctioned tracheal and orally with minimal improvement. RT called to bedside. patient with spo2 96% with fio2 50%. will continue to monitor.
[2019-03-07] MEDS: HYDROCORTISONE SOD SUCCINATE 100 MG/2 ML VIAL IV SCH ×2 (16:27→17:00)
--- NOTE | 2019-03-07 17:00 | NUR ---
icu nurse note spoke with Dr. Marquis regarding patients high residuals throughout the day and gtf has been on hold. new orders received for reglan iv 5mg q6. will continue to monitor.
[2019-03-07] MEDS: METOCLOPRAMIDE HCL 10 MG/2 ML VIAL IV SCH (18:20)
--- NOTE | 2019-03-07 20:00 | NUR ---
SALES REPRESENTATIVE CASH REGISTERS - NOTES - RECEIVED PATIENT OBTUNDED, NON-VERBAL. NO S/S OF PAIN OR DISCOMFORT. NO RESPIRATORY DISTRESS NOTED. TRACH C/D/I. TOLERATING CURRENT VENT SETTINGS. ON TELE MONITOR SR. F/C PATENT, DRAINING BY GRAVITY. COLOSTOMY IN PLACE. GT PATENT AND INTACT, WITH RESIDUALS 160ML. ABY PICC LINE PATENT AND INTACT WITH LEVO AT 12 MCG/MIN. HOB ELEVATED. SIDE RAILS UP AND LOCKED. BED KEPT AT LOWEST POSITION. WILL CONTINUE TO MONITOR.
--- NOTE | 2019-03-07 20:41 | NUR ---
RECEIVED PT TRACH MAXIM 6XLT ON VENT. NO RESP DISTRESS. PT TOLERATING VENT SETTINGS. SX'D FOR MOD AMT OF THIN WHITE SECRETIONS. VENT ALARMS SET AND AUDIBLE. AMBU BAG AT BEDSIDE. CONTINUE [facility] VENT SUPPORT. Addendum: 03/07/19 at 2041 by POOL ENRIQUEZ RT Amended: Links added.
[2019-03-07] MEDS: TRAZODONE 50 MG TABLET PO SCH (21:38)
[2019-03-08] VITALS (96 sets, daily range): BP systolic 78–127; BP diastolic 38–74
[2019-03-08] MEDS: METOCLOPRAMIDE HCL 10 MG/2 ML VIAL IV SCH ×4 (00:01→17:37)
[2019-03-08] MEDS: NOREPINEPHRINE 16 MG in IV D5W 500 ML IV PRN ×2 (02:12→15:36)
[2019-03-08 04:44] LABS: BASOPHILS % (AUTO) 0.3 % (0.0-2.0); HEMATOCRIT 23 % (39-51); HEMOGLOBIN 7.6 g/dL (13.5-17.5); LYMPHOCYTES # (AUTO) 1.3 /CMM (0.8-4.8); LYMPHOCYTES % (AUTO) 6.5 % (20.0-44.0); MEAN CORPUSCULAR HGB CONC 33 g/dl (31.0-36.0); MEAN CORPUSCULAR VOLUME 83 fL (80-96); MONOCYTES # (AUTO) 0.4 /CMM (0.1-1.30); MONOCYTES % (AUTO) 1.8 % (2.0-12.0); NEUTROPHILS # (AUTO) 17.7 /CMM (1.8-8.9); NEUTROPHILS % (AUTO) 91.4 % (43.0-81.0); PLATELET COUNT (AUTO) 460 /CMM (150-450); WHITE BLOOD COUNT (AUTO) 19.3 K/uL (4.3-11.0)
[2019-03-08 04:57] LABS: POTASSIUM 3.8 mmol/L (3.5-5.1)
[2019-03-08 04:58] LABS: ALBUMIN 1.6 g/dL (3.4-5.0); BILIRUBIN,TOTAL 0.3 mg/dL (0.2-1.0); CALCIUM, SERUM 10.8 mg/dL (8.5-10.1); CREATININE 1.3 mg/dL (0.6-1.3); MAGNESIUM 1.6 mg/dL (1.8-2.4); PHOSPHORUS 4.8 mg/dL (2.5-4.9); TOTAL PROTEIN, SERUM 7.6 g/dL (6.4-8.2)
[2019-03-08] MEDS: IV D5W 1,000 ML IV PRN (06:12)
--- NOTE | 2019-03-08 07:25 | NUR ---
ROPE MACHINE SETTER OPENING NOTE RECEIVED REPORT FROM PM NURSE.PATIENT NON-VERBAL. NO S/S OF PAIN OR DISCOMFORT. NO RESPIRATORY DISTRESS NOTED. TRACH TO VENT TOLERATING CURRENT VENT SETTINGS ORDERED. ON TELE MONITOR SR. SUPRAPUBIC CATH PATENT, DRAINING BY GRAVITY. COLOSTOMY IN PLACE. GT PATENT AND INTACT. ABY PICC LINE PATENT AND INTACT WITH LEVO AT 10 MCG/MIN. SAFETY AND ASPIRATION PRECAUTIONS IN PLACE.BED IS LOW AND IN LOCKED POSITION.CALL LIGHT IN REACH.BED ALARM ON .SRX3.WILL CONTINUE TO MONITOR.
[2019-03-08] MEDS: ALBUTEROL HALF STRENGTH 1.25 MG/3 ML VIAL.NEB NEB SCH ×2 (07:30→20:15)
[2019-03-08] MEDS: ACETYLCYSTEINE 20% SOLN 800 MG/4 ML VIAL NEB SCH ×2 (07:30→20:15)
--- NOTE | 2019-03-08 07:30 | NUR ---
RT Pt received trached on mechanical ventilation with noted settings. Vent is plugged into red outlet. No SOB or respiratory distress noted at this time. Addendum: 03/08/19 at 0840 by GHANSHYAM GIRARD RT Amended: Links added.
[2019-03-08] MEDS: MIDODRINE HCL (5MG) 5 MG TABLET GT SCH ×2 (08:44→17:37)
[2019-03-08] MEDS: HYDROCORTISONE SOD SUCCINATE 100 MG/2 ML VIAL IV SCH ×3 (08:44→17:37)
[2019-03-08] MEDS: CHLORHEXIDINE GLUCONATE 15 ML UDC MM SCH ×2 (08:44→21:02)
[2019-03-08] MEDS: AMIODARONE HCL 200 MG TABLET GT SCH ×2 (08:44→17:00)
[2019-03-08] MEDS: DOCUSATE SODIUM LIQ 100 MG/10 ML UDC GT SCH ×2 (08:44→17:37)
[2019-03-08] MEDS: FLUCONAZOLE (100 MG) 100 MG TABLET PO SCH (08:44)
[2019-03-08] MEDS: POLYETHYLENE GLYCOL 3350 17 GM POWD.PACK GT SCH (08:44)
[2019-03-08] MEDS: DAKINS QUARTER STRENGTH (0.125%) 480 ML BOTTLE TOP SCH ×2 (08:45→08:47)
[2019-03-08] MEDS: ACETAMINOPHEN 325 MG TABLET PO PRN (08:45)
[2019-03-08] MEDS: CLOTRIMAZOLE/BETAMETASONE DIPROPIONATE 15 GM TUBE TP SCH ×4 (08:46→17:33)
[2019-03-08] MEDS: Z GUARD REMEDY 2 OZ OINT TP SCH (08:46)
[2019-03-08] MEDS: Magnesium 1GM/D5W 100ML PREMIX 100 ML IV SCH ×2 (09:52→11:00)
[2019-03-08] MEDS ORDERED: LIDOCAINE 1%-EPI 1:100,000 20 ML VIAL TP STA (13:44)
--- NOTE | 2019-03-08 14:53 | NUR ---
EDUCATION DIRECTOR NOTE SEEN BY BULMARO GRANADO FROM WOUND CARE.S/P WOUND DEBRIDEMENT OF BUTTOCK AND SACRAL WOUND.MINIMUM BLEEDING NOTED.PRESSURE DRESSING APPLIED.GOT NEW ORDERS.WILL CONTINUE TO MONITOR.
--- NOTE | 2019-03-08 16:00 | NUR ---
BOOKMOBILE DRIVER NOTE GOT CALL FROM SISTER MARY ELLEN.SHE WANT DOCTOR TO CALL HIS PRIMARY DOCTOR AND UPDATE HER ABOUT CURRENT STATUS OF THE PATIENT.SOCIAL DIRECTOR CODY CALLE MADE AWARE .LEFT MESSAGE WITH INFORMATION.HE SPOKE TO THE PRIMARY PHYSICIAN OF THE PATIENT.
--- NOTE | 2019-03-08 16:24 | NUR ---
CLIENT MANAGER LARGE LAW NOTE [facility].PATIENT POSITIVE FOR VRE WOUND.WILL F/U WITH INFECTIOUS DISEASE.
[2019-03-08] MEDS: JEVITY 1.2 CAL 1,000 ML BOTTLE GT PRN (17:39)
--- NOTE | 2019-03-08 19:00 | NUR ---
BRIAR SHOP SUPERVISOR CLOSING NOTE PATIENT NON-VERBAL. ABLE TO MOUTH WORDS FOR SIMPLE QUESTIONS AND NOD HEAD FOR YES/NO QUESTIONS. NO S/S OF PAIN OR DISCOMFORT. NO RESPIRATORY DISTRESS NOTED. TRACH TO VENT TOLERATING CURRENT VENT SETTINGS ORDERED. ON TELE MONITOR SR. SUPRAPUBIC CATH PATENT, DRAINING BY GRAVITY. COLOSTOMY IN PLACE. GT PATENT AND INTACT. ABY PICC LINE PATENT AND INTACT WITH LEVO AT 8 MCG/MIN. SAFETY AND ASPIRATION PRECAUTIONS IN PLACE.BED IS LOW AND IN LOCKED POSITION.CALL LIGHT IN REACH.BED ALARM ON .SRX3.AWAITING FOR ID CONSULT.ENDORSED TO PM NURSE FOR CHICA.
--- NOTE | 2019-03-08 19:30 | NUR ---
HADOOP DEVELOPER RCD PT W/DX HYPOTENSION; PT IS AWAKE NON VERBAL. NSR ON MONITOR. LEVOPHED AT 8 MCG/MIN TO KEEP MAP >65' WILL TITRATE ACCORDINGLY. COLOSTOMY IN PLACE WITH SMALL AMOUNT OF LIQUID STOOL NOTED. SKIN CARE DONE. SUPRAPUBIC CATH WITH CLOUDY URINE OUTPUT NOTED. MULTIPLE WOUND ISSUES WITH DRESSINGS C/D/I. ABY PICC LINE WITH D5W @ 40 ML/HR. JEVITY 1.2 @ 60 ML/HR W/MIN RESIDUAL NOTED.
--- NOTE | 2019-03-08 20:00 | NUR ---
EMPLOYEE WELLNESS/FITNESS COORDINATOR RENDERED ORAL CARE; TURNED AND REPOSITIONED. CONTINUE TO MONITOR.
[2019-03-08] MEDS: MEROPENEM 500 MG in IV NS 0.9% 50 ML IV SCH (21:02)
[2019-03-08] MEDS: LINEZOLID RTU BAG 600 MG in PREMIX 1 EA IV SCH (21:02)
[2019-03-08] MEDS: TRAZODONE 50 MG TABLET PO SCH (22:53)
[2019-03-09] VITALS (81 sets, daily range): BP systolic 77–115; BP diastolic 43–79
[2019-03-09] MEDS: METOCLOPRAMIDE HCL 10 MG/2 ML VIAL IV SCH ×4 (00:30→18:20)
[2019-03-09 04:32] LABS: BASOPHILS # (AUTO) 0.1 /CMM (0.0-0.2); BASOPHILS % (AUTO) 0.5 % (0.0-2.0); EOSINOPHILS % (AUTO) 0.1 % (0.0-6.0); HEMATOCRIT 21 % (39-51); LYMPHOCYTES # (AUTO) 1.5 /CMM (0.8-4.8); LYMPHOCYTES % (AUTO) 10.7 % (20.0-44.0); MEAN CORPUSCULAR HGB CONC 33 g/dl (31.0-36.0); MEAN CORPUSCULAR VOLUME 84 fL (80-96); MONOCYTES # (AUTO) 0.5 /CMM (0.1-1.30); MONOCYTES % (AUTO) 3.6 % (2.0-12.0); NEUTROPHILS # (AUTO) 11.7 /CMM (1.8-8.9); NEUTROPHILS % (AUTO) 85.1 % (43.0-81.0); PLATELET COUNT (AUTO) 463 /CMM (150-450); RED BLOOD CELL COUNT(AUTO) 2.56 MIL/uL (4.5-6.0); WHITE BLOOD COUNT (AUTO) 13.7 K/uL (4.3-11.0)
[2019-03-09 04:59] LABS: CALCIUM, SERUM 9.8 mg/dL (8.5-10.1); CREATININE 1.2 mg/dL (0.6-1.3); PHOSPHORUS 4.2 mg/dL (2.5-4.9)
[2019-03-09] MEDS: MEROPENEM 500 MG in IV NS 0.9% 50 ML IV SCH ×3 (05:01→20:19)
--- NOTE | 2019-03-09 07:37 | NUR ---
RN NOTE: Received patient in bed, awake, nonverbal but able to mouth words and answer simple questions by nodding and shaking his head. On vent-trach dependent and was saturating 95-100% with current vent setting. Denied any pain or discomfort. HOB elevated. On GT feeding of Jevity 1.2 @60ml/hr and was tolerating well. Afebrile. Skin warm to touch. On Levophed 4mcg/min and will continue to monitor the patient's blood pressure. (L) UA PICC line with 3 ports infusing Levophed. Suprapubic catheter in placed with yellow urine draining to gravity and colostomy bag on the (L) lower quadrant with liquid brown stool. On contact isolation for VRE sacral wound. Will inform the hospitalist about the patient's potassium level today. Bed alarmed and locked at all times. Needs anticipated. Frequent suctioning was rendered to the patient.
[2019-03-09] MEDS: ALBUTEROL HALF STRENGTH 1.25 MG/3 ML VIAL.NEB NEB SCH ×2 (08:15→20:10)
[2019-03-09] MEDS: ACETYLCYSTEINE 20% SOLN 800 MG/4 ML VIAL NEB SCH ×2 (08:15→20:10)
[2019-03-09] MEDS: POTASSIUM CL. PREMIX PERIPHER. 50 ML IV SCH ×4 (08:46→12:55)
[2019-03-09] MEDS: HYDROCORTISONE SOD SUCCINATE 100 MG/2 ML VIAL IV SCH ×3 (10:45→18:20)
[2019-03-09] MEDS: FLUCONAZOLE (100 MG) 100 MG TABLET PO SCH (10:47)
[2019-03-09] MEDS: MIDODRINE HCL (5MG) 5 MG TABLET GT SCH ×2 (10:48→18:33)
[2019-03-09] MEDS: AMIODARONE HCL 200 MG TABLET GT SCH ×2 (10:49→18:21)
[2019-03-09] MEDS: DAKINS QUARTER STRENGTH (0.125%) 480 ML BOTTLE TOP SCH ×2 (10:50→10:51)
[2019-03-09] MEDS: CHLORHEXIDINE GLUCONATE 15 ML UDC MM SCH ×2 (10:50→20:20)
[2019-03-09] MEDS: CLOTRIMAZOLE/BETAMETASONE DIPROPIONATE 15 GM TUBE TP SCH ×4 (10:52→18:33)
[2019-03-09] MEDS: Z GUARD REMEDY 2 OZ OINT TP SCH (10:53)
[2019-03-09] MEDS: POLYETHYLENE GLYCOL 3350 17 GM POWD.PACK GT SCH (10:54)
[2019-03-09] MEDS: LINEZOLID RTU BAG 600 MG in PREMIX 1 EA IV SCH ×2 (10:54→21:00)
[2019-03-09] MEDS: DOCUSATE SODIUM LIQ 100 MG/10 ML UDC GT SCH ×2 (10:54→18:20)
--- NOTE | 2019-03-09 14:30 | NUR ---
RN NOTE: Patient was off Levophed at this time. Will continue to monitor the patient's BP.
[2019-03-09] MEDS: JEVITY 1.2 CAL 1,000 ML BOTTLE GT PRN (17:10)
--- NOTE | 2019-03-09 19:30 | NUR ---
RN NOTE: Bedside report to CLIVE Boone for continuity of care. Remained on isolation for VRE sacral wound. Patient remained off the Levophed since 1430 and BP has been within normal and MAP was >65. On GT feeding and patient was tolerating well.
--- NOTE | 2019-03-09 20:00 | NUR ---
HOME HEALTH ASSISTANT NOTES Received patient in bed, awake,Alert nonverbal , able to mouth words needs and answer simple questions by nodding and shaking his head. On vent-trach dependent ac setting well tolerated sating 100% no sob no distress noted, Denies any pain or discomfort at this time . HOB elevated. On GT feeding of Jevity 1.2 @60ml/hr no residual noted and feeding well tolerated.v/s stable on 90s systolic Afebrile. Skin warm to touch. On (L) UA PICC line intact and patent, Suprapubic catheter in placed with yellow urine draining to gravity and colostomy bag on the (L) lower quadrant with liquid brown stool. On contact isolation for VRE sacral wound.precautionary measures observed at all times. Bed alarmed and locked at all times. Needs anticipated. turned and reposition q 2hrs and prn , due meds and iv atb given as ordered no ase noted kept pts clean dry and comfortable suction secretion q2hrs and prn , will continue to monitor pts.
--- NOTE | 2019-03-09 20:10 | NUR ---
PT RECEIVED TRACH'D SHILEY 6 XLT ON MECH VENT WITH NOTED SETTINGS. PT IS AWAKE , ALERT, NON VERBAL AND RESPONDS TO STIMULI WHEN SUCTIONED. ASSISTANT SIGNAL MAINTAINER DONE. AMBU BAG AT BEDSIDE. VENT PLUGGED INTO RED OUTLET. ALARMS ON AND AUDIBLE. BREATHING TX'S GIVEN ORDERED. NO ADVERSE REACTIONS NOTED . SUCTIONED AND MONITORED PRN. NO SOB NOTED AT THIS TIME. WILL CONTINUE TO MONITOR FOR ANY CHANGES.
[2019-03-09] MEDS: TRAZODONE 50 MG TABLET PO SCH (22:26)
[2019-03-10] VITALS (67 sets, daily range): BP systolic 82–115; BP diastolic 48–69
[2019-03-10] MEDS: METOCLOPRAMIDE HCL 10 MG/2 ML VIAL IV SCH ×5 (00:09→23:31)
[2019-03-10 04:38] LABS: BASOPHILS % (AUTO) 0.4 % (0.0-2.0); EOSINOPHILS % (AUTO) 0.3 % (0.0-6.0); HEMATOCRIT 21 % (39-51); LYMPHOCYTES % (AUTO) 14.6 % (20.0-44.0); MEAN CORPUSCULAR HGB CONC 33 g/dl (31.0-36.0); MEAN CORPUSCULAR VOLUME 84 fL (80-96); MONOCYTES # (AUTO) 0.5 /CMM (0.1-1.30); MONOCYTES % (AUTO) 3.3 % (2.0-12.0); NEUTROPHILS # (AUTO) 11.3 /CMM (1.8-8.9); NEUTROPHILS % (AUTO) 81.4 % (43.0-81.0); PLATELET COUNT (AUTO) 478 /CMM (150-450); WHITE BLOOD COUNT (AUTO) 13.8 K/uL (4.3-11.0)
[2019-03-10 04:49] LABS: CALCIUM, SERUM 9.3 mg/dL (8.5-10.1); CREATININE 1.2 mg/dL (0.6-1.3); MAGNESIUM 1.7 mg/dL (1.8-2.4); PHOSPHORUS 3.8 mg/dL (2.5-4.9); POTASSIUM 3.6 mmol/L (3.5-5.1)
[2019-03-10] MEDS: MEROPENEM 500 MG in IV NS 0.9% 50 ML IV SCH ×3 (04:59→23:44)
[2019-03-10 05:23] LABS: HEMOGLOBIN 6.9 g/dL (13.5-17.5)
--- NOTE | 2019-03-10 05:30 | NUR ---
received critical lab values hgb 6.9 hct 21 relayed to bee salomon said to defer to day shift to transfused pts . endorse to randy rn day shift.
[2019-03-10 05:59] LABS: LYMPHOCYTES % (MANUAL) 8 % (16-48); MONOCYTES % (MANUAL) 2 % (0-11.0); NEUTROPHILS % (MANUAL) 90 (42-76)
--- NOTE | 2019-03-10 07:05 | NUR ---
RN NOTES RECEIVED PT ON BED, AWAKE, ALERT , ABLE TO MOUTH WORDS , AND ANSWER SIMPLE QUESTIONS BY NODDING AND SHAKING HIS HEAD , VENT/ TRACH DEPENDENT, TRACH CARE AND SUCTIONING DONE,NO DISTRESS NOTED, HOB ELEVATED TOLERATING TF WELL , NO RESIDUAL NOTED, L UPPER ARM PICC LINE SITE , CLEAN, DRY AND INTACT , SUPRAPUBIC CATHETER AND COLOSTOMY INTACT, SR UP x3, CALL LIGHT WITHIN EASY REACH, BED LOCKED AND IN LOWEST POSITION, CONTINUE TO MONITOR .
[2019-03-10] MEDS: ALBUTEROL HALF STRENGTH 1.25 MG/3 ML VIAL.NEB NEB SCH ×2 (07:53→20:15)
[2019-03-10] MEDS: ACETYLCYSTEINE 20% SOLN 800 MG/4 ML VIAL NEB SCH ×2 (07:53→20:15)
[2019-03-10] MEDS: LINEZOLID RTU BAG 600 MG in PREMIX 1 EA IV SCH ×2 (08:31→23:35)
[2019-03-10] MEDS: POLYETHYLENE GLYCOL 3350 17 GM POWD.PACK GT SCH (08:35)
[2019-03-10] MEDS: DOCUSATE SODIUM LIQ 100 MG/10 ML UDC GT SCH ×2 (08:35→16:47)
[2019-03-10] MEDS: CHLORHEXIDINE GLUCONATE 15 ML UDC MM SCH ×2 (08:35→23:42)
[2019-03-10] MEDS: FLUCONAZOLE (100 MG) 100 MG TABLET PO SCH (08:36)
[2019-03-10] MEDS: HYDROCORTISONE SOD SUCCINATE 100 MG/2 ML VIAL IV SCH ×3 (08:36→16:47)
[2019-03-10] MEDS: MIDODRINE HCL (5MG) 5 MG TABLET GT SCH ×2 (08:36→16:48)
[2019-03-10] MEDS: AMIODARONE HCL 200 MG TABLET GT SCH ×2 (08:36→16:48)
[2019-03-10] MEDS: DAKINS QUARTER STRENGTH (0.125%) 480 ML BOTTLE TOP SCH ×2 (08:37→10:08)
[2019-03-10] MEDS: CLOTRIMAZOLE/BETAMETASONE DIPROPIONATE 15 GM TUBE TP SCH ×4 (08:38→16:50)
[2019-03-10] MEDS: Z GUARD REMEDY 2 OZ OINT TP SCH (08:39)
--- NOTE | 2019-03-10 10:00 | NUR ---
RN NOTES AERIAL INSTALLER NOTIFED REGARDING H/H 6.11/20,NEW ORDER RECEIVED . CONTINUE TO MONITOR .
[2019-03-10] MEDS: Magnesium 1GM/D5W 100ML PREMIX 100 ML IV SCH ×2 (10:13→11:12)
[2019-03-10] MEDS: HYDROGEL DRESSING 90 GM TUBE TP SCH (11:14)
[2019-03-10] MEDS: JEVITY 1.2 CAL 1,000 ML BOTTLE GT PRN (11:18)
--- NOTE | 2019-03-10 15:40 | NUR ---
RN NOTES BLOOD TRANSFUSION STARTED , CONTINUE TO MONITOR
--- NOTE | 2019-03-10 18:30 | NUR ---
RN NOTES ON UNIT OF PRBC TRANSFUSED , PT TOLERATED WELL, NO DISTRESS NOTED. NO SIGNIFICANT CHANGES NOTED ON THIS SHIFT, WILL ENDOSE TO ESTATE AND TRUST TAX PRINCIPAL NURSE FOR CONTINUITY OF CARE.
[2019-03-10] MEDS: TRAZODONE 50 MG TABLET PO SCH (23:32)
[2019-03-11] VITALS (39 sets, daily range): BP systolic 85–119; BP diastolic 45–78
--- NOTE | 2019-03-11 01:23 | NUR ---
NURSING NOTE; Received pqtient awake in bed on vent to trach with regular unlabored respirations. All exremities contracted. HOB AT 45 degrees. Pt communicate with this nurse by mouthing words. Suprapubic datheteriColostomy bag is filled with air. Pt denies pain. Franks to gravity. IV site in he left upper arm, is intact and patent. repositioned and tolerated adstivity
[2019-03-11 05:04] LABS: CREATININE 1.1 mg/dL (0.6-1.3)
[2019-03-11 05:16] LABS: BASOPHILS % (AUTO) 0.3 % (0.0-2.0); HEMATOCRIT 24 % (39-51); HEMOGLOBIN 8.1 g/dL (13.5-17.5); LYMPHOCYTES # (AUTO) 1.3 /CMM (0.8-4.8); LYMPHOCYTES % (AUTO) 9.4 % (20.0-44.0); MEAN CORPUSCULAR HGB CONC 33 g/dl (31.0-36.0); MEAN CORPUSCULAR VOLUME 84 fL (80-96); MONOCYTES # (AUTO) 0.4 /CMM (0.1-1.30); MONOCYTES % (AUTO) 2.7 % (2.0-12.0); NEUTROPHILS # (AUTO) 11.7 /CMM (1.8-8.9); NEUTROPHILS % (AUTO) 87.6 % (43.0-81.0); PLATELET COUNT (AUTO) 493 /CMM (150-450); RED BLOOD CELL COUNT(AUTO) 2.89 MIL/uL (4.5-6.0); WHITE BLOOD COUNT (AUTO) 13.4 K/uL (4.3-11.0)
[2019-03-11] MEDS: METOCLOPRAMIDE HCL 10 MG/2 ML VIAL IV SCH ×3 (06:00→17:02)
[2019-03-11] MEDS: MEROPENEM 500 MG in IV NS 0.9% 50 ML IV SCH ×3 (07:00→21:36)
--- NOTE | 2019-03-11 07:05 | NUR ---
RN NOTES RECEIVED PT ON BED, AWAKE, ALERT , ABLE TO MOUTH WORDS , AND ANSWER SIMPLE QUESTIONS BY NODDING AND SHAKING HIS HEAD , VENT/ TRACH DEPENDENT, ON TELE SB HE IN NAVEED 50'S , TRACH CARE AND SUCTIONING DONE,NO DISTRESS NOTED, HOB ELEVATED TOLERATING TF WELL , NO RESIDUAL NOTED, L UPPER ARM PICC LINE SITE , CLEAN, DRY AND INTACT , SUPRAPUBIC CATHETER AND COLOSTOMY INTACT, SR UP x3, CALL LIGHT WITHIN EASY REACH, BED LOCKED AND IN LOWEST POSITION, CONTINUE TO MONITOR .
[2019-03-11] MEDS: ACETYLCYSTEINE 20% SOLN 800 MG/4 ML VIAL NEB SCH ×2 (08:02→20:04)
[2019-03-11] MEDS: ALBUTEROL HALF STRENGTH 1.25 MG/3 ML VIAL.NEB NEB SCH ×2 (08:02→20:03)
[2019-03-11] MEDS: FLUCONAZOLE (100 MG) 100 MG TABLET PO SCH (08:21)
[2019-03-11] MEDS: MIDODRINE HCL (5MG) 5 MG TABLET GT SCH ×2 (08:21→17:00)
[2019-03-11] MEDS: POLYETHYLENE GLYCOL 3350 17 GM POWD.PACK GT SCH (08:22)
[2019-03-11] MEDS: AMIODARONE HCL 200 MG TABLET GT SCH ×2 (08:22→17:02)
[2019-03-11] MEDS: DOCUSATE SODIUM LIQ 100 MG/10 ML UDC GT SCH ×2 (08:22→17:03)
[2019-03-11] MEDS: CHLORHEXIDINE GLUCONATE 15 ML UDC MM SCH ×2 (08:22→21:41)
[2019-03-11] MEDS: DAKINS QUARTER STRENGTH (0.125%) 480 ML BOTTLE TOP SCH ×2 (08:23)
[2019-03-11] MEDS: CLOTRIMAZOLE/BETAMETASONE DIPROPIONATE 15 GM TUBE TP SCH ×4 (08:24→16:57)
[2019-03-11] MEDS: HYDROGEL DRESSING 90 GM TUBE TP SCH (08:25)
[2019-03-11] MEDS: Z GUARD REMEDY 2 OZ OINT TP PRN (08:25)
[2019-03-11] MEDS: Z GUARD REMEDY 2 OZ OINT TP SCH (08:26)
[2019-03-11] MEDS: LINEZOLID RTU BAG 600 MG in PREMIX 1 EA IV SCH ×2 (08:27→20:24)
[2019-03-11] MEDS: HYDROCORTISONE SOD SUCCINATE 100 MG/2 ML VIAL IV SCH ×3 (09:00→17:02)
--- NOTE | 2019-03-11 09:45 | NUR ---
RN NOTES DR DONNELLY NOTIFED REGRADING K=3.0, NEW ORDER RECEIVED.
--- NOTE | 2019-03-11 10:00 | NUR ---
RN NOTES SOLU- CORTEF NOT AVAILABLE FROM PHARMACY YET ,
--- NOTE | 2019-03-11 10:20 | NUR ---
RN NOTES REPORT GIVEN TO RED RN FOR CONTINUITY OF CARE. PT TRANSFERRED TO ROOM 103 VIA ACLS PROTOCOL IN STABLE CONDITION, NO BELONGINGS NOTED.
--- NOTE | 2019-03-11 10:28 | NUR ---
pt. transferred from icu to room 103. pt used same [facility] vent, no vent changes made. vent plugged into red outlet with ambubag @ bedside. Addendum: 03/11/19 at 1031 by YAJAIRA RODRIGUEZ RT Amended: Links added.
--- NOTE | 2019-03-11 10:30 | NUR ---
ABBIE RN OPENING NOTE RECEIVED PT FROM ICU TO ROOM 103. PT IN BED, AWAKE, ALERT, ABLE TO MOUTH WORDS , AND ANSWER SIMPLE QUESTIONS BY NODDING AND SHAKING HIS HEAD. ON VENT, TOLERATING SETTINGS WELL, NO SIGNS OF RESPIRATORY DISTRESS NOTED. ON TELE MONITOR SINUS JESSICA HR 58. JEVITY INFUSING AT 60CC/HR, TOLERATING FEEDING WELL, NO RESIDUAL NOTED. LEFT UPPER ARM PICC LINE SITE CLEAN, DRY, INTACT AND PATENT. IV SITE ON RIGHT WRIST G20 INTACT, PATENT WITH HEP LOCK IN PLACE. SUPRAPUBIC CATHETER INTACT, PATENT, DRAINING CLOUDY YELLOW URINE. COLOSTOMY INTACT. BED LOCKED, IN LOW POSITION, CALL LIGHT WITHIN REACH.
[2019-03-11] MEDS: POTASSIUM CL. PREMIX PERIPHER. 50 ML IV SCH ×4 (10:48→13:48)
--- NOTE | 2019-03-11 18:40 | NUR ---
ABBIE RN CLOSING NOTE PT IN BED, AWAKE, ALERT, ABLE TO MOUTH WORDS AND ANSWER SIMPLE QUESTIONS BY NODDING AND SHAKING HIS HEAD. ON VENT, TOLERATING SETTINGS WELL, NO SIGNS OF RESPIRATORY DISTRESS NOTED. ON TELE MONITOR SINUS RHYTM HR 73. JEVITY INFUSING AT 60CC/HR, TOLERATING FEEDING WELL, NO RESIDUAL NOTED. LEFT UPPER ARM PICC LINE SITE CLEAN, DRY, INTACT AND PATENT WITH HEP LOCK IN PLACE. IV SITE ON RIGHT WRIST G20 INTACT, PATENT WITH HEP LOCK IN PLACE. SUPRAPUBIC CATHETER INTACT, PATENT, DRAINING CLOUDY YELLOW URINE. COLOSTOMY INTACT. BED LOCKED, IN LOW POSITION, CALL LIGHT WITHIN REACH. PROVIDED SAFETY AND COMFORT TO PT THROUGHOUT SHIFT, ALL DUE MEDS GIVEN, TURNED AND REPOSITIONED EVERY 2 HOURS. WILL ENDORSE TO [facility] SHIFT NURSE.
--- NOTE | 2019-03-11 19:10 | NUR ---
ABBIE RN OPENING NOTE RECEIVED PATIENT IN BED RESTING WITH HOB ELEVATED. AWAKE. OBTUNDED. ON VENT. RESPONSIVE TO TOUCH. IN NO APPARENT DISTRESS NOTED AT THIS TIME. WILL CONTINUE TO MONITOR.
--- NOTE | 2019-03-11 20:26 | NUR ---
PT RCVD TRACH'D ON MECHANICAL VENT WITH CHARTED SETTINGS. PT AURE TX WELL. SX DONE. PT TRACH IS PATENT AND SECURE. VENT ALARMS APPEAR TO BE FUNCTIONING PROPERLY. VENT PLUGGED INTO RED OUTLET. AMBU BAG AT BEDSIDE. NO SOB NOTED. Addendum: 03/11/19 at 2025 by MACHO APTEL RT Amended: Links added.
[2019-03-11] MEDS: TRAZODONE 50 MG TABLET PO SCH (21:41)
[2019-03-12] VITALS: BP 112/62
[2019-03-12] MEDS: METOCLOPRAMIDE HCL 10 MG/2 ML VIAL IV SCH ×4 (00:10→17:03)
[2019-03-12] MEDS: JEVITY 1.2 CAL 1,000 ML BOTTLE GT PRN ×2 (00:59→16:43)
[2019-03-12 04:00] VITALS: BP 120/70
[2019-03-12] MEDS: MEROPENEM 500 MG in IV NS 0.9% 50 ML IV SCH ×2 (04:56→12:47)
--- NOTE | 2019-03-12 06:45 | NUR ---
ABBIE RN CLOSING NOTE PATIENT IS IN BED RESTING WITH HOB ELEVATED. OBTUNDED. ON VENT. ON GTF. GTF IS RUNNING AT THIS TIME AND KEPT PATENT. IN NO APPARENT DISTRESS NOTED AT THIS TIME. PATIENT IS KEPT CLEAN, DRY, AND COMFORTABLE. WILL ENDORSE TO AM SHIFT RN FOR CHICA.
[2019-03-12 06:49] LABS: CALCIUM, SERUM 8.9 mg/dL (8.5-10.1); CREATININE 0.9 mg/dL (0.6-1.3); MAGNESIUM 1.9 mg/dL (1.8-2.4); PHOSPHORUS 3.3 mg/dL (2.5-4.9); POTASSIUM 3.4 mmol/L (3.5-5.1)
[2019-03-12 06:59] LABS: BASOPHILS % (AUTO) 0.1 % (0.0-2.0); EOSINOPHILS % (AUTO) 0.3 % (0.0-6.0); HEMATOCRIT 26 % (39-51); HEMOGLOBIN 8.5 g/dL (13.5-17.5); LYMPHOCYTES # (AUTO) 1.8 /CMM (0.8-4.8); LYMPHOCYTES % (AUTO) 13.9 % (20.0-44.0); MEAN CORPUSCULAR HGB CONC 33 g/dl (31.0-36.0); MEAN CORPUSCULAR VOLUME 86 fL (80-96); MONOCYTES # (AUTO) 0.6 /CMM (0.1-1.30); MONOCYTES % (AUTO) 4.8 % (2.0-12.0); NEUTROPHILS # (AUTO) 10.5 /CMM (1.8-8.9); NEUTROPHILS % (AUTO) 80.9 % (43.0-81.0); PLATELET COUNT (AUTO) 580 /CMM (150-450); RED BLOOD CELL COUNT(AUTO) 3.03 MIL/uL (4.5-6.0)
--- NOTE | 2019-03-12 07:30 | NUR ---
ABBIE RN AM NOTE RECEIVED PT IN BED, EYES OPEN, AWAKE, ALERT, TRIES TO MOUTH WORDS , AND ANSWER SIMPLE QUESTIONS BY NODDING AND SHAKING HIS HEAD. WITH SHILEY 6 XLT TRACHE TO MECHANICAL VENT, TOLERATING SETTINGS WELL, NO SIGNS OF RESPIRATORY DISTRESS NOTED. SINUS RHYTHM HR 70 ON MONITOR. NO SIGNS OF PAIN. NO GRIMACING. LEFT UPPER ARM PICC LINE SITE CLEAN, DRY, INTACT AND PATENT. IV SITE ON RIGHT WRIST G20 INTACT, FLUSHES WELL. SITE CLEAR. JEVITY INFUSING AT 60CC/HR, TOLERATING FEEDING WELL, NO RESIDUAL NOTED. SUPRAPUBIC CATHETER INTACT, PATENT, DRAINING CLOUDY YELLOW URINE. COLOSTOMY INTACT. BED LOCKED, IN LOW POSITION, CALL LIGHT WITHIN REACH. WILL PERFORM WOUND CARE IN A WHILE. WILL TURN AND REPOSTION Q 2HOURS. OFF LOAD. WILL CONT TO MONITOR
[2019-03-12] MEDS: ALBUTEROL HALF STRENGTH 1.25 MG/3 ML VIAL.NEB NEB SCH ×2 (07:51→19:51)
[2019-03-12] MEDS: ACETYLCYSTEINE 20% SOLN 800 MG/4 ML VIAL NEB SCH ×2 (07:51→19:51)
[2019-03-12 08:00] VITALS: BP 128/55
[2019-03-12] MEDS: LINEZOLID RTU BAG 600 MG in PREMIX 1 EA IV SCH ×2 (08:52→21:40)
[2019-03-12] MEDS: POLYETHYLENE GLYCOL 3350 17 GM POWD.PACK GT SCH (08:53)
[2019-03-12] MEDS: HYDROCORTISONE SOD SUCCINATE 100 MG/2 ML VIAL IV SCH ×3 (08:53→16:40)
[2019-03-12] MEDS: FLUCONAZOLE (100 MG) 100 MG TABLET PO SCH (08:54)
[2019-03-12] MEDS: DOCUSATE SODIUM LIQ 100 MG/10 ML UDC GT SCH ×2 (08:54→16:39)
[2019-03-12] MEDS: CHLORHEXIDINE GLUCONATE 15 ML UDC MM SCH ×2 (08:54→21:36)
[2019-03-12] MEDS: HYDROGEL DRESSING 90 GM TUBE TP SCH (08:55)
[2019-03-12] MEDS: MIDODRINE HCL (5MG) 5 MG TABLET GT SCH ×2 (08:55→16:40)
[2019-03-12] MEDS: AMIODARONE HCL 200 MG TABLET GT SCH ×2 (08:55→16:40)
[2019-03-12] MEDS: Z GUARD REMEDY 2 OZ OINT TP SCH (08:56)
[2019-03-12] MEDS: DAKINS QUARTER STRENGTH (0.125%) 480 ML BOTTLE TOP SCH ×2 (08:56)
[2019-03-12] MEDS: CLOTRIMAZOLE/BETAMETASONE DIPROPIONATE 15 GM TUBE TP SCH ×4 (08:57→16:41)
--- NOTE | 2019-03-12 09:30 | NUR ---
RN NOTES DUE MEDS GIVEN
[2019-03-12] MEDS ORDERED: POTASSIUM CHLORIDE 20 MEQ POWDER PACKET GT ONE (10:00)
[2019-03-12 12:00] VITALS: BP 112/51
[2019-03-12 16:00] VITALS: BP 116/51
--- NOTE | 2019-03-12 18:26 | NUR ---
RN CLOSING NOTES PT IN BED, ASLEEP, RESPONDS TO NAME AND TOUCH, AND ANSWER SIMPLE QUESTIONS BY NODDING AND SHAKING HIS HEAD. WITH SHILEY 6 XLT TRACHE TO MECHANICAL VENT, TOLERATING SETTINGS WELL, NO SIGNS OF RESPIRATORY DISTRESS NOTED. SINUS RHYTHM HR 70S ON MONITOR. NO SIGNS OF PAIN. NO GRIMACING. LEFT UPPER ARM PICC LINE SITE CLEAN, DRY, INTACT AND PATENT. IV SITE ON RIGHT WRIST G20 INTACT, FLUSHES WELL. SITE CLEAR. JEVITY INFUSING AT 60CC/HR, TOLERATING FEEDING WELL, NO RESIDUAL NOTED. SUPRAPUBIC CATHETER INTACT, PATENT, DRAINING CLOUDY YELLOW URINE. 1500 ML OUTPUT. COLOSTOMY INTACT 500 ML OUTPUT. BED LOCKED, IN LOW POSITION, CALL LIGHT WITHIN REACH. PERFORMED WOUND CARE AND PM CARE EARLIER. TURNED AND REPOSITIONED Q 2HOURS. OFF LOAD. ALL NEEDS MET AT THIS TIME. WILL ENDORSE TO NEXT SHIFT FOR CHICA.
[2019-03-12 20:00] VITALS: BP 114/70
--- NOTE | 2019-03-12 20:17 | NUR ---
CORN DETASSELER OPENING NOTE RECEIVED PATIENT OBTUNDED BUT PATIENT IS ONLY ABLE TO NOD HEAD. PATIENT CURRENTLY SHOWING NO SIGN OF ANY DISTRESS. ON VENTILATOR WITH NO SIGN OF DISTRESS. VENT IS ON AC 14, TV 500, FI02 40%, AND PEEP OF 5 WITH A SHILEY #6. PATIENT HAS AN OSTOMY ON THE LEFT SIDE. PATIENT HAS IV ACCESS ON THE ABY PICC WITH 3 PORTS, AND R WRIST PATENT. PATIENT IS ON GTUBE FEEDINGS WITH JEVITY 1.2 RUNNING AT 60CC/HR TOLERATING WELL. PATIENT ON THE MONITOR SHOWING SINUS RHYTHM IN THE 60'S. ALL SAFETY PRECAUTIONS APPLIED. WILL CONTINUE TO MONITOR PATIENT FOR CHICA.,.
[2019-03-12] MEDS: TRAZODONE 50 MG TABLET PO SCH (21:36)
[2019-03-13] VITALS: BP 104/63
[2019-03-13] MEDS: METOCLOPRAMIDE HCL 10 MG/2 ML VIAL IV SCH ×5 (00:30→23:52)
[2019-03-13 04:00] VITALS: BP 105/58
--- NOTE | 2019-03-13 06:21 | NUR ---
RT PT RECEIVED ON [facility] VENT WITH NOTED SETTING. PT TOLERATING SETTING WELL. NO SOB OR DISTRESS NOTED ON SHIFT. HHN TX GIVEN ORDERED WITH NO ADVERSE REACTIONS. CONTINUE CURRENT CARE PLAN AND MONITOR FOR ANY CHANGES. Addendum: 03/13/19 at 0622 by KETURAH GARCIA RT Amended: Links added.
--- NOTE | 2019-03-13 07:29 | NUR ---
PUBLIC HEALTH NUTRITIONIST NOTE PATIENT IN BED. TOLERATING VENT AND GTUBE FEEDING. VENT IS PLUGGED IN TO RED OUTLET. ALL SAFETY PRECAUTIONS APPLIED. ENDORSED PATIENT TO MORNING SHIFT NURSE FOR CHICA.
[2019-03-13] MEDS: ACETYLCYSTEINE 20% SOLN 800 MG/4 ML VIAL NEB SCH ×2 (07:39→19:56)
[2019-03-13] MEDS: ALBUTEROL HALF STRENGTH 1.25 MG/3 ML VIAL.NEB NEB SCH ×2 (07:39→19:56)
[2019-03-13 08:00] VITALS: BP 103/58
--- NOTE | 2019-03-13 08:00 | NUR ---
TRAPPER BIRD NOTE PATIENT IN BED .AWAKE BUT OBTUNDED, WITH TRACH TO VENT SETTING ORDERED, ON TELE MONITOR SR HR 60 , WITH COLOSTOMY ON LT LOWER ABDOMEN IN PLACE WITH LOOSE STOOL NOTED , WITH SUPRAPUBIC CATH IN PLACE, WITH YELLOW COLOR URINE, AMBU BAG AT HOB AT ALL TIME, WITH G TUBE FEEDING ORDERED KEEP HOB ELEVATED AT ALL TIME ,NO RESIDUAL NOTED ABY PICC LINE [address], ONLY 2LUMEN SALO TO FLUSH BED IN LOWEST AND LOCKED POSITION , CALL LIGHT WITHIN REACH , WILL MONITOR
[2019-03-13 08:36] LABS: BASOPHILS # (AUTO) 0.1 /CMM (0.0-0.2); BASOPHILS % (AUTO) 0.6 % (0.0-2.0); EOSINOPHILS % (AUTO) 1.6 % (0.0-6.0); HEMATOCRIT 26 % (39-51); HEMOGLOBIN 8.5 g/dL (13.5-17.5); LYMPHOCYTES # (AUTO) 1.8 /CMM (0.8-4.8); LYMPHOCYTES % (AUTO) 12.5 % (20.0-44.0); MEAN CORPUSCULAR HGB CONC 33 g/dl (31.0-36.0); MEAN CORPUSCULAR VOLUME 86 fL (80-96); MONOCYTES # (AUTO) 0.5 /CMM (0.1-1.30); MONOCYTES % (AUTO) 3.2 % (2.0-12.0); NEUTROPHILS # (AUTO) 11.9 /CMM (1.8-8.9); NEUTROPHILS % (AUTO) 82.1 % (43.0-81.0); PLATELET COUNT (AUTO) 564 /CMM (150-450); RED BLOOD CELL COUNT(AUTO) 3.07 MIL/uL (4.5-6.0); WHITE BLOOD COUNT (AUTO) 14.5 K/uL (4.3-11.0)
[2019-03-13 08:48] LABS: CALCIUM, SERUM 8.7 mg/dL (8.5-10.1); CREATININE 0.7 mg/dL (0.6-1.3); MAGNESIUM 1.8 mg/dL (1.8-2.4); POTASSIUM 3.3 mmol/L (3.5-5.1)
[2019-03-13] MEDS: DOCUSATE SODIUM LIQ 100 MG/10 ML UDC GT SCH ×2 (08:55→16:42)
[2019-03-13] MEDS: CHLORHEXIDINE GLUCONATE 15 ML UDC MM SCH ×2 (08:55→21:34)
[2019-03-13] MEDS: MIDODRINE HCL (5MG) 5 MG TABLET GT SCH ×2 (08:55→16:43)
[2019-03-13] MEDS: FLUCONAZOLE (100 MG) 100 MG TABLET PO SCH (08:55)
[2019-03-13] MEDS: POLYETHYLENE GLYCOL 3350 17 GM POWD.PACK GT SCH (08:56)
[2019-03-13] MEDS: HYDROCORTISONE SOD SUCCINATE 100 MG/2 ML VIAL IV SCH ×3 (08:56→16:42)
[2019-03-13] MEDS: AMIODARONE HCL 200 MG TABLET GT SCH ×2 (09:00→16:43)
[2019-03-13] MEDS: CLOTRIMAZOLE/BETAMETASONE DIPROPIONATE 15 GM TUBE TP SCH ×4 (09:00→16:44)
[2019-03-13] MEDS: DAKINS QUARTER STRENGTH (0.125%) 480 ML BOTTLE TOP SCH ×2 (09:10→09:13)
[2019-03-13] MEDS: HYDROGEL DRESSING 90 GM TUBE TP SCH (09:10)
[2019-03-13] MEDS: Z GUARD REMEDY 2 OZ OINT TP SCH (09:12)
[2019-03-13] MEDS: LINEZOLID RTU BAG 600 MG in PREMIX 1 EA IV SCH ×2 (10:21→21:34)
[2019-03-13] MEDS: JEVITY 1.2 CAL 1,000 ML BOTTLE GT PRN (11:13)
[2019-03-13] MEDS ORDERED: POTASSIUM CHLORIDE 20 MEQ POWDER PACKET GT SCH (11:30)
--- NOTE | 2019-03-13 11:53 | NUR ---
MAKING MACHINE CATCHER NOTE REPOSITION DONE, KEEP CLEAN DRY, CONT ON VENT SETTING ,WILL MONITOR
[2019-03-13 12:00] VITALS: BP 110/65
[2019-03-13 16:00] VITALS: BP 110/65
--- NOTE | 2019-03-13 17:12 | NUR ---
PAINT STRIPING MACHINE OPERATOR NOTE DUPLICATE ORDER FOR CORTISONE CREAM
--- NOTE | 2019-03-13 18:37 | NUR ---
BARREL STRAIGHTENER NOTE CONT ON VENT SETTING ORDERED, NO S\S DISTRESS.WITH G TUBE FEEDING ORDERED, TOLERATED WELL ,WITH COLOSTOMY IN PLACE AND SUPRAPUBIC CATH TO GRAVITY , BED IN LOWEST AND LOCKED POSITION, WILL MONITOR CLOSELY
[2019-03-13 20:00] VITALS: BP 116/67
--- NOTE | 2019-03-13 20:00 | NUR ---
BELT BUCKLE MAKER NOTE PT IN BED AWAKE. ABLE TO COMMUNICATE WITH FACIAL GESTURE. PT IS C/O PAIN BUT UNABLE SCALE IT. NORCO 1 TAB VIA GT GIVEN. ON VENT/TRACH TOLERATING THE SETTINGS WELL. NO DISTRESS NOTED.GTF JEVITY 1.2 GUY INFUSING WELL. 0 ML RESIDUAL NOTED. ON TELE MONITOR SR HR 73. COLOSTOMY BAG INTACT AND PATENT DRAINING LIQUIDY STOOL. ALSO SUPRAPUBIC CATH INTACT AND PATENT DRAINING YELLOWISH COLOR URINE. REPOSITION HIM FOR SKIN MANAGEMENT. KEPT HIM DRY AND CLEAN. ALL NEEDS ATTENDED. SIDE RAILS UP X 3 AND CALL LIGHT WITHIN REACH. VSS. CONTINUE TO MONITOR HIM.
[2019-03-13] MEDS: TRAZODONE 50 MG TABLET PO SCH (21:34)
[2019-03-14] VITALS (8 sets, daily range): BP systolic 116–143; BP diastolic 67–86
--- NOTE | 2019-03-14 03:00 | NUR ---
MATZO FORMING MACHINE OPERATOR NOTE RT CHANGED THE FIO2 SETTINGS TO 40%. O2 SAT 98%
[2019-03-14] MEDS: JEVITY 1.2 CAL 1,000 ML BOTTLE GT PRN (04:31)
[2019-03-14] MEDS: METOCLOPRAMIDE HCL 10 MG/2 ML VIAL IV SCH ×2 (05:23→11:29)
[2019-03-14 06:20] LABS: BASOPHILS % (AUTO) 0.3 % (0.0-2.0); EOSINOPHILS % (AUTO) 1.8 % (0.0-6.0); HEMATOCRIT 28 % (39-51); HEMOGLOBIN 9.2 g/dL (13.5-17.5); LYMPHOCYTES # (AUTO) 2.1 /CMM (0.8-4.8); LYMPHOCYTES % (AUTO) 16.3 % (20.0-44.0); MEAN CORPUSCULAR HGB CONC 33 g/dl (31.0-36.0); MEAN CORPUSCULAR VOLUME 86 fL (80-96); MONOCYTES # (AUTO) 0.6 /CMM (0.1-1.30); MONOCYTES % (AUTO) 4.4 % (2.0-12.0); NEUTROPHILS # (AUTO) 10.1 /CMM (1.8-8.9); NEUTROPHILS % (AUTO) 77.2 % (43.0-81.0); PLATELET COUNT (AUTO) 602 /CMM (150-450); RED BLOOD CELL COUNT(AUTO) 3.21 MIL/uL (4.5-6.0); WHITE BLOOD COUNT (AUTO) 13.1 K/uL (4.3-11.0)
--- NOTE | 2019-03-14 06:43 | NUR ---
SUPERINTENDENT DIVISION NOTE PT IN BED AWAKE. TOLERATING VENT SETTINGS WELL. SUCTIONED HIM FREQUENTLY. THICK WHITE SECRETIONS NOTED. NO DISTRESS OR DISCOMFORT NOTED. DENIES PAIN. GTF INFUSING WELL. SUPRAPUBIC CATH DRAINING CLOUDY URINE. REPOSITION HIM Q2H. KEPT HIM DRY AND CLEAN. ON TELE SR HR 73. SIDE RAILS UP X 3 AND CALL LIGHT WITHIN REACH. ALL NEEDS ATTENDED. WILL ENDORSE TO DAY SHIFT NURSE FOR CONTINUE TO CARE.
[2019-03-14 07:01] LABS: CALCIUM, SERUM 8.6 mg/dL (8.5-10.1); CREATININE 0.7 mg/dL (0.6-1.3); MAGNESIUM 1.7 mg/dL (1.8-2.4); POTASSIUM 3.7 mmol/L (3.5-5.1)
--- NOTE | 2019-03-14 07:30 | NUR ---
GRANITE COUNTERTOP INSTALLER OPENING NOTE RECEIVED PATIENT IN BED, ABLE TO MOUTH WORDS AND ANSWER YES AND NO QUESTIONS. NO COMPLAINS OF PAIN AT THIS TIME. PATIENT IS ON VENT, TOLERATING SETTINGS WELL. NO S/S OF SOB NOTED, BREATHING IS EVEN AND UNLABORED. PT IS ON TELE MONITOR, SINUS RHYTHM IS NOTED 72 BPM. G TUBE IS INTACT, FLUSHED WELL. JEVITY 1.2 GUY IS INFUSING AT 60 ML/HR. COLOSTOMY BAG IS INTACT, DRAINING LIQUID STOOL. SUPRAPUBIC CATHETER IS INTACT, DRAINING YELLOW COLOR URINE. SAFETY MAINTAINED, CALL LIGHT WITHIN REACH, WILL CONTINUE TO MONITOR.
[2019-03-14] MEDS: ACETYLCYSTEINE 20% SOLN 800 MG/4 ML VIAL NEB SCH (07:52)
[2019-03-14] MEDS: ALBUTEROL HALF STRENGTH 1.25 MG/3 ML VIAL.NEB NEB SCH (07:52)
[2019-03-14] MEDS: POLYETHYLENE GLYCOL 3350 17 GM POWD.PACK GT SCH (08:25)
[2019-03-14] MEDS: MIDODRINE HCL (5MG) 5 MG TABLET GT SCH ×2 (08:26→16:45)
[2019-03-14] MEDS: FLUCONAZOLE (100 MG) 100 MG TABLET PO SCH (08:26)
[2019-03-14] MEDS: DOCUSATE SODIUM LIQ 100 MG/10 ML UDC GT SCH ×2 (08:26→16:45)
[2019-03-14] MEDS: AMIODARONE HCL 200 MG TABLET GT SCH ×2 (08:26→16:45)
[2019-03-14] MEDS: CHLORHEXIDINE GLUCONATE 15 ML UDC MM SCH (08:27)
[2019-03-14] MEDS: HYDROCORTISONE SOD SUCCINATE 100 MG/2 ML VIAL IV SCH ×3 (08:27→16:46)
[2019-03-14] MEDS: DAKINS QUARTER STRENGTH (0.125%) 480 ML BOTTLE TOP SCH ×2 (08:36→08:39)
[2019-03-14] MEDS: HYDROGEL DRESSING 90 GM TUBE TP SCH (08:36)
[2019-03-14] MEDS: CLOTRIMAZOLE/BETAMETASONE DIPROPIONATE 15 GM TUBE TP SCH ×4 (08:37→16:59)
[2019-03-14] MEDS: Z GUARD REMEDY 2 OZ OINT TP SCH (08:39)
[2019-03-14] MEDS: LINEZOLID RTU BAG 600 MG in PREMIX 1 EA IV SCH (08:57)
[2019-03-14] MEDS: Magnesium 1GM/D5W 100ML PREMIX 100 ML IV SCH ×2 (10:00→11:29)
[2019-03-14] MEDS ORDERED: Magnesium 1GM/D5W 100ML PREMIX 100 ML IV SCH (13:30)
[2019-03-14] MEDS ORDERED: LINE100S2 GT (15:58)
[2019-03-14] MEDS ORDERED: FLUC100T8 GT (15:58)
--- NOTE | 2019-03-14 16:00 | NUR ---
TOPPIECE CHOPPER NOTE RECEIVED DISCHARGE ORDERS FOR THE PATIENT. PATIENT IS GOING BACK TO THE PRISON FACILITY, [facility]. CALLED THE FACILITY TO GIVE REPORT. REPORT RECEIVED BY HARRIET DUFFY AT THE SN[facility]. PATIENT WILL BE PICKED UP AT 1700. WILL CONTINUE TO MONITOR.
[2019-03-14] MEDS ORDERED: PROSOURCE / PROSTAT (PYXIS) 30 ML UDC GT SCH (17:00)
--- NOTE | 2019-03-14 17:02 | NUR ---
RT PT RECEIVED TRACH'D AND ON [facility] VENT W CHARTED SETTINGS. VENT IS PLUGGED INTO RED OUTLET W BMV AND SPARE TRACH AT HOB. ALARMS ARE SET AND AUDIBLE. PT IS STABLE. NO RESPIRATORY DISTRESS NOTED T/O SHIFT. Addendum: 03/14/19 at 1723 by GIULIANA WEAVER RT Amended: Links added.
[2019-03-14] MEDS ORDERED: HYDROCORTISONE SOD SUCCINATE 100 MG/2 ML VIAL IV SCH (17:30)
--- NOTE | 2019-03-14 17:39 | NUR ---
OPHTHALMOLOGY TECHNICIAN CLOSING NOTES PATIENT WAS PICKED UP BY TRANSPORT, REPORT GIVEN TO THE AMBULANCE PERSONNEL. PATIENT IS IN STABLE CONDITION. NO ACUTE CHANGES TO PT CONDITION DURING MY SHIFT. ALL PT NEEDS MET. DISCHARGE INSTRUCTIONS PROVIDED TO THE PATIENT, PT IS UNABLE TO SIGN, SIGNED BY THE CHARGE NURSE AND I. NO ACUTE DISTRESS NOTED. TOLERATING VENT SETTINGS WELL. DISCONNECTED PATIENT FROM THE IV AND FEEDING PUMP. CHANGED THE COLONOSCOPY BAG. PATIENT SAFETY MAINTAINED. CALL LIGHT WITHIN REACH. AMBULANCE PERSONNEL WILL CONTINUE TO MONITOR THE PATIENT DURING THE TRANSPORT.
== END 2019-03-14 18:02 | DRG 853 ==
LOC: TELE 06:46 → ICU 19:08 → TELE-TD 03-11 10:17 → TELE1 03-12 10:04
PROVIDERS: ADMIT Family Medicine; ATTEND Hospitalist
PROC: 5A1955Z Respiratory Ventilation, Greater than 96 Consecutive Hours (ICD-10-PCS; 2019-03-02)
PROC: 30233N1 Transfusion of Nonautologous Red Blood Cells into Peripheral Vein, Percutaneous Approach (ICD-10-PCS; 2019-03-02)
PROC: 05HA33Z Insertion of Infusion Device into Left Brachial Vein, Percutaneous Approach (ICD-10-PCS; 2019-03-02)
PROC: 0KBN0ZZ Excision of Right Hip Muscle, Open Approach (ICD-10-PCS; principal; 2019-03-03)
PROC: 0QB10ZZ Excision of Sacrum, Open Approach (ICD-10-PCS; principal; 2019-03-03)
PROC: 0KBP0ZZ Excision of Left Hip Muscle, Open Approach (ICD-10-PCS; principal; 2019-03-03)
PROC: 02HV33Z Insertion of Infusion Device into Superior Vena Cava, Percutaneous Approach (ICD-10-PCS; 2019-03-04)
PROC: B548ZZA Ultrasonography of Superior Vena Cava, Guidance (ICD-10-PCS; 2019-03-04)
PROC: 0KBP0ZZ Excision of Left Hip Muscle, Open Approach (ICD-10-PCS; 2019-03-08)
PROC: 0KBN0ZZ Excision of Right Hip Muscle, Open Approach (ICD-10-PCS; 2019-03-08)
PROC: 0QB10ZZ Excision of Sacrum, Open Approach (ICD-10-PCS; 2019-03-08)
DX: A41.9 Sepsis, unspecified organism (principal); L89.154 Pressure ulcer of sacral region, stage 4; N17.0 Acute kidney failure with tubular necrosis; R65.21 Severe sepsis with septic shock; E43 Unspecified severe protein-calorie malnutrition; E87.2 Acidosis; J96.10 Chronic respiratory failure, unspecified whether with hypoxia or hypercapnia; E27.40 Unspecified adrenocortical insufficiency; B37.49 Other urogenital candidiasis; D62 Acute posthemorrhagic anemia; E87.0 Hyperosmolality and hypernatremia; G93.40 Encephalopathy, unspecified; J90 Pleural effusion, not elsewhere classified; J98.11 Atelectasis; R64 Cachexia; Z99.11 Dependence on respirator [ventilator] status; I95.9 Hypotension, unspecified; B35.3 Tinea pedis; D63.8 Anemia in other chronic diseases classified elsewhere; E83.42 Hypomagnesemia; E86.1 Hypovolemia; E87.6 Hypokalemia; G35 Multiple sclerosis; I48.91 Unspecified atrial fibrillation; I70.0 Atherosclerosis of aorta; L30.4 Erythema intertrigo; R13.10 Dysphagia, unspecified; Z93.0 Tracheostomy status; Z93.1 Gastrostomy status; Z93.3 Colostomy status; N31.2 Flaccid neuropathic bladder, not elsewhere classified; R31.9 Hematuria, unspecified; M62.562 Muscle wasting and atrophy, not elsewhere classified, left lower leg; M62.561 Muscle wasting and atrophy, not elsewhere classified, right lower leg; M62.472 Contracture of muscle, left ankle and foot; M62.471 Contracture of muscle, right ankle and foot; L98.9 Disorder of the skin and subcutaneous tissue, unspecified
CPT/HCPCS: 31720; 36415; 36569; 71045-TC; 72220-TC; 80048-TC; 80053-TC; 80061-TC; 81000-TC; 82533; 82550-TC; 82570-TC; 83605-TC; 83735-TC; 83970; 84100-TC; 84155; 84155-TC; 84165; 84300-TC; 85025-TC; 85027-TC; 86850-TC; 86921-TC; 87040-TC; 87070-TC; 87081-TC; 87086-TC; 94002-TC; 94003-TC; 94760-TC; 94799-TC; A4216; A4217; A4623; A6248; A6253; A6403; C1751; G0378; J0770; J1720; J2020; J2185; J2765; J3475; J3480; J3490; J7030; J7050; J7060; J7070; P9016-BL